=== PATIENT | male | born 1965 | race Caucasian/White ===

== ENCOUNTER 2017-04-22 10:44 | Inpatient (IN) | payer SELFPAY ==
[2017-04-22] MEDS ORDERED: Ondansetron INJ* 2 MG/ML VIAL IV ONE (12:37)
[2017-04-22] MEDS ORDERED: NS 0.9% 1000 ML* 2,000 ML IV ONE ×2 (12:55→15:21)
--- NOTE | 2017-04-22 13:25 | RAD ---
INDICATION: Weight loss and tachypnea. COMPARISON: There are no prior studies available for comparison. TECHNIQUE: A portable view of the chest was obtained. FINDINGS: Cardiac and mediastinal contours appear to be within normal limits. The lungs are clear. No pleural effusion is seen. IMPRESSION: NO EVIDENCE FOR ACUTE DISEASE.
[2017-04-22 13:34] LABS: Hematocrit 54 % (42-52); Hemoglobin 18.3 g/dl (14.0-18.0); Mean Corpuscular HGB Conc 34 g/dl (31-36); Mean Corpuscular Hemoglobin 30 pg (27-31); Mean Corpuscular Volume 89 fL (80-94); Mean Platelet Volume 9 um3 (7.4-10.4); Red Blood Count 6.06 10^6/ul (4.0-5.4); Red Cell Distribution Width 14 % (10.5-15); White Blood Count 31.9 10^3/ul (3.5-10.8)
[2017-04-22 13:41] LABS: Add Diff/Slide Review? Slide Review Added; Comments Flag Yes
[2017-04-22 13:50] LABS: Albumin 4.7 g/dL (3.2-5.2); BUN/Creatinine Ratio 31.8 (8-20); C Reactive Protein 4.62 mg/L (< 5.00); Calcium 10.4 mg/dL (8.6-10.3); EGFR African American 90.1 (>60); Globulin 3.6 g/dL (2-4); Potassium 4.3 mmol/L (3.5-5.0); Total Protein 8.3 g/dL (6.4-8.9)
[2017-04-22 14:06] LABS: Mono Internal Control QC Line Present
[2017-04-22 14:29] LABS: Venous Bicarbonate HCO3 12.6 mmol/L (24-28)
[2017-04-22 14:38] LABS: Urine Bilirubin Negative (Negative); Urine Glucose 3+(>=500 mg/dL) (Negative); Urine Nitrite Negative (Negative)
[2017-04-22] MEDS ORDERED: Insulin REGULAR(*) 1 UNITS UNIT IV PUSH ONE (15:27)
[2017-04-22] MEDS ORDERED: NS 0.9% 1000 ML* 1,000 ML IV SCH (15:30)
[2017-04-22] MEDS ORDERED: NS 0.9% w/ 20 Meq KCL 1000 ML* 1,000 ML IV SCH (16:00)
[2017-04-22 16:55] LABS: BUN/Creatinine Ratio 31.3 (8-20); EGFR African American 124.6 (>60); EGFR Non-African American 96.9 (>60); Potassium 3.6 mmol/L (3.5-5.0)
--- NOTE | 2017-04-22 17:00 | HP ---
HISTORY AND PHYSICAL: DATE OF ADMISSION: 04/22/17 PRIMARY CARE PHYSICIAN: None. CHIEF COMPLAINT: Fatigue, nausea, dehydration. HISTORY OF PRESENT ILLNESS: Mr. Sterling is a 52-year-old man with no reported past medical history and little medical followup, who presents to the hospital with weakness, dehydration, and nausea. The patient states he has been feeling unwell for the past few months. Feels that he has lost about 20 pounds in the past 6 months; however, specifically over the last 4 to 5 days, he has felt progressively weak and fatigued. He noticed he has been sleeping frequently. He has had a poor appetite and has been urinating often. He has tried to keep up with water intake, but has not been eating much food. He states he has had some nausea, has not vomited on his own, but has forced emesis a few times, which he states improved his symptoms. Reports intermittent sweats never to the point where he needs to change his clothes. Never taken his temperature. Denies chest pain, abdominal pain, diarrhea, constipation, dysuria, hematuria, bright red blood per rectum. States his breathing is erratic at times, specifically around the times that he forces himself to vomit. The patient is homosexual. States his last sexual encounter was 25 years ago and he has always used protection. He has not had an HIV test recently. In the emergency department, the patient was found to have labs and findings consistent with DKA and hospitalist service was consulted to consider the patient for admission. PAST MEDICAL HISTORY: None. Again, little medical followup. PAST SURGICAL HISTORY: None. HOME MEDICATIONS: Reports taking ibuprofen infrequently. ALLERGIES: No known drug allergies. FAMILY HISTORY: Significant for mother with hypertension. Father in a car accident. Brother was diagnosed with diabetes about 1 year ago. 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 Reports half a pack per day smoking history x25 years. Denies any alcohol intake. Smokes marijuana occasionally. No other drug use. REVIEW OF SYSTEMS: A 12-point review of systems negative except for that is noted in the HPI. PHYSICAL EXAMINATION GENERAL: The patient is a thin middle-aged man, lying in bed, in no apparent distress. VITAL SIGNS: On admission, temperature 98.2, heart rate of 131, respiratory rate of 20, O2 saturation 99% on room air, and blood pressure 128/98. HEENT: Head: Normocephalic, atraumatic. Eyes: Pupils are equal, round, and reactive to light and accommodation. Anicteric sclerae. ENT: Dry mucous membranes. The patient's breath has a fruity odor. NECK: No cervical adenopathy. LUNGS: Clear to auscultation bilaterally. No wheezes, rales, or rhonchi. CARDIOVASCULAR: Tachycardia. No murmurs, gallops, or rubs. ABDOMEN: Soft, nontender, nondistended. Bowel sounds positive. EXTREMITIES: No cyanosis, clubbing, or edema. NEURO: The patient is alert and oriented x3. No focal neurological deficits. DIAGNOSTIC STUDIES/LAB DATA: White blood cell count of 31.9, hemoglobin of 18.3, hematocrit of 54, and platelets of 312. VBG with a pH of 7.21, pCO2 of 29 , pO2 of 37, bicarb of 12.6. Sodium 123, potassium 4.3, chloride of 87, carbon dioxide of 11, BUN of 35, creatinine of 1.10, glucose of 540, calcium of 10.4. AST of 6, ALT of 10, alk phos of 125. CRP of 4.62. UA with 2+ ketones, 3+ glucose. Flu swab negative. Hendricks screen negative. HIV test pending. EKG, personally reviewed, shows sinus tachycardia with some repolarization abnormalities. Chest x-ray shows no acute disease. ASSESSMENT AND PLAN: Diabetic ketoacidosis in a 52-year-old man with no past medical history and little medical followup. 1. Diabetic ketoacidosis. The patient received 2 L of IV fluids in the emergency department. We will give another 2 L bolus and continue the patient on normal saline with 20 mEq of potassium at a rate of 250 mL per hour. We will give an initial bolus of 7 units of insulin and start an insulin drip. The patient's corrected sodium is 130 at this time. We will monitor the patient 's fingersticks every hour and BMP every 4 hours. Can make adjustments to insulin rate and IV fluids as needed until the patient's acidosis resolves. Have added on a hemoglobin A1c and ordered a diabetes education consult. Okay for the patient to drink just water for now. I do not suspect any underlying infection. I think his symptoms are all secondary to DKA and his white blood cell count is likely significantly hemoconcentrated. 2. Weight loss. Could be secondary to untreated diabetes. HIV test is pending at this time as well. ED has also ordered Lyme disease, PCR, and QuantiFERON Gold. 3. DVT prophylaxis: Lovenox subcu. 4. Code status: The patient is full code. TIME SPENT: Total time spent on this admission 45 minutes with over half the time spent [id number] with the patient in counseling and coordinating care. [id number]/[facility] #: [id number] MERRY
[2017-04-22] MEDS: Enoxaparin(*) 40 MG/0.4 ML SYR SUBCUT SCH (18:04)
[2017-04-22] MEDS: Al Hydrox/Mg Hydrox/Simet LIQ* 30 ML UDC PO PRN (18:46)
[2017-04-22 19:44] LABS: BUN/Creatinine Ratio 30.4 (8-20); EGFR African American 154.3 (>60); EGFR Non-African American 119.9 (>60); Potassium 4.2 mmol/L (3.5-5.0)
[2017-04-22] MEDS: D5W 1/2 NS KCl 20 Meq 1000 ML* 1,000 ML IV SCH (20:08)
--- NOTE | 2017-04-22 20:54 | ED ---
Danitza Perez Abhishek, scribed for Aristides Segal MD on 04/22/17 at 1241 . Abdominal Pain/Male - HPI Summary HPI Summary: This patient is a 52 year old M presenting to [facility] accompanied by male and mother with a chief complaint of abd pain since 3 days ago. The CC is described as uneasy at the medial abd region. The patient rates the pain 6/10 in severity. Symptoms aggravated by nothing. Symptoms alleviated by vomiting. Patient reports N/V, fever (subjective), body aches, decrease in appetite, dry mouth, and weight loss since this summer. Patient denies flu shot, joint aches, tick bites, cough, rhinorrhea, diarrhea, hematochezia. 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 Negative: Cough, Blood in Stool - Allergies/Home Medications Allergies/Adverse Reactions: Allergies Allergy/AdvReac Type Severity Reaction Status Date / Time No Known Allergies Allergy Verified 04/22/17 10:54 PMH/Surg Hx/FS Hx/Imm Hx Infectious Disease History: No Infectious Disease History: Denies: Traveled Outside the [place] in Last 30 Days - Family History Known Family History: Positive: Diabetes - Brother, Other - Negative cancer - Social History Occupation: Employed Full-time - r Alcohol Use: Occasionally Smoking Status (MU): Current Some Day Smoker Review of Systems Positive: Fever, Other - weight loss since this summer Eyes: Negative Positive: Other - dry mouth. Negative: Nasal Discharge Positive: Other - tachycardic Negative: Cough Positive: Abdominal Pain, Vomiting, Nausea, Other - decreased appetite Positive: frequency - urination Positive: Other - body aches Negative: Rash Positive: Weakness Psychological: Normal All Other Systems Reviewed And Are Negative: Yes - Comments Additional Review of Systems Comments: Negative joint aches, tick bites, and hematochezia, Physical Exam - Summary Physical Exam Summary: Constitutional: cachectic appearing, Skin: Warm, Dry HENT: Normocephalic; Atraumatic; dry mucous membranes Eyes: Conjunctiva normal Neck: Musculoskeletal ROM normal neck. (-) JVD, (-) Stridor, (-) Tracheal deviation Cardio: Rhythm regular, Tachycardia ; Intact distal pulses; The pedal pulses are 2+ and symmetric. Radial pulses are 2+ and symmetric. (-) Murmur Pulmonary/Chest wall: Effort normal. (-) Respiratory distress, (-) Wheezes, (-) Rales Abd: Soft, (-) Tenderness, (-) Distension, (-) Guarding, (-) Rebound Musculoskeletal: (-) Edema Lymph: (-) Cervical adenopathy Neuro: Alert, Oriented x3 Psych: Mood and affect Normal Triage Information Reviewed: Yes Vital Signs On Initial Exam: Initial Vitals Temp Pulse Resp BP Pulse Ox 98.2 F 131 20 128/98 99 04/22/17 10:51 04/22/17 10:51 04/22/17 10:51 04/22/17 10:51 04/22/17 10:51 Vital Signs Reviewed: Yes Diagnostics - Vital Signs Vital Signs Temp Pulse Resp BP Pulse Ox 04/22/17 10:51 98.2 F 131 20 128/98 99 - Laboratory Lab Results: Lab Results 04/22/17 04/22/17 04/22/17 Range/Units 13:22 13:22 13:22 WBC 31.9 H (3.5-10.8) 10^3/ul RBC 6.06 H (4.0-5.4) 10^6/ul Hgb 18.3 H (14.0-18.0) g/dl Hct 54 H (42-52) % MCV 89 (80-94) fL MCH 30 (27-31) pg MCHC 34 (31-36) g/dl RDW 14 (10.5-15) % Plt Count 312 (150-450) 10^3/ul MPV 9 (7.4-10.4) um3 Neut % (Auto) 89.3 H (38-83) % Lymph % (Auto) 5.5 L (25-47) % [place] % (Auto) 4.7 (1-9) % Eos % (Auto) 0 (0-6) % Baso % (Auto) 0.5 (0-2) % Absolute Neuts (auto) 28.4 H (1.5-7.7) 10^3/ul Absolute Lymphs (auto) 1.8 (1.0-4.8) 10^3/ul Absolute Monos (auto) 1.5 H (0-0.8) 10^3/ul Absolute Eos (auto) 0 (0-0.6) 10^3/ul Absolute Basos (auto) 0.2 (0-0.2) 10^3/ul Absolute Nucleated RBC 0.04 10^3/ul Nucleated RBC % 0.1 VBG pH (7.33-7.43) VBG pCO2 (41-51) mmHg VBG pO2 (35-45) mmHg VBG HCO3 (24-28) mmol/L VBG O2 Saturation (70-80) % VBG Base Excess (0-4) Sodium 123 L (133-145) mmol/L Potassium 4.3 (3.5-5.0) mmol/L Chloride 87 L (101-111) mmol/L Carbon Dioxide 11 L* (22-32) mmol/L Anion Gap 25 H (2-11) mmol/L BUN 35 H (6-24) mg/dL Creatinine 1.10 (0.67-1.17) mg/dL Est GFR ( Amer) 90.1 (>60) Est GFR (Non-Af Amer) 70.0 (>60) BUN/Creatinine Ratio 31.8 H (8-20) Glucose 540 H* (70-100) mg/dL Hemoglobin A1c (4.0-5.6) % Lactic Acid 1.6 (0.5-2.0) mmol/L Calcium 10.4 H (8.6-10.3) mg/dL Total Bilirubin 1.00 (0.2-1.0) mg/dL AST 6 L (13-39) U/L ALT 10 (7-52) U/L Alkaline Phosphatase 125 H (34-104) U/L C-Reactive Protein 4.62 (< 5.00) mg/L Total Protein 8.3 (6.4-8.9) g/dL Albumin 4.7 (3.2-5.2) g/dL Globulin 3.6 (2-4) g/dL Albumin/Globulin Ratio 1.3 (1-3) Lipase 17 (11.0-82.0) U/L Urine Color Urine Appearance Urine pH (5-9) Ur Specific [place] (1.010-1.030) Urine Protein (Negative) Urine Ketones (Negative) Urine Blood (Negative) Urine Nitrate (Negative) Urine Bilirubin (Negative) Urine Urobilinogen (Negative) Ur Leukocyte Esterase (Negative) Urine Glucose (Negative) Monoscreen Negative (Negative) Influenza A (Rapid) (Negative) Influenza B (Rapid) (Negative) 04/22/17 04/22/17 04/22/17 Range/Units 13:22 13:27 14:15 WBC (3.5-10.8) 10^3/ul RBC (4.0-5.4) 10^6/ul Hgb (14.0-18.0) g/dl Hct (42-52) % MCV (80-94) fL MCH (27-31) pg MCHC (31-36) g/dl RDW (10.5-15) % Plt Count (150-450) 10^3/ul MPV (7.4-10.4) um3 Neut % (Auto) (38-83) % Lymph % (Auto) (25-47) % [place] % (Auto) (1-9) % Eos % (Auto) (0-6) % Baso % (Auto) (0-2) % Absolute Neuts (auto) (1.5-7.7) 10^3/ul Absolute Lymphs (auto) (1.0-4.8) 10^3/ul Absolute Monos (auto) (0-0.8) 10^3/ul Absolute Eos (auto) (0-0.6) 10^3/ul Absolute Basos (auto) (0-0.2) 10^3/ul Absolute Nucleated RBC 10^3/ul Nucleated RBC % VBG pH (7.33-7.43) VBG pCO2 (41-51) mmHg VBG pO2 (35-45) mmHg VBG HCO3 (24-28) mmol/L VBG O2 Saturation (70-80) % VBG Base Excess (0-4) Sodium (133-145) mmol/L Potassium (3.5-5.0) mmol/L Chloride (101-111) mmol/L Carbon Dioxide (22-32) mmol/L Anion Gap (2-11) mmol/L BUN (6-24) mg/dL Creatinine (0.67-1.17) mg/dL Est GFR ( Amer) (>60) Est GFR (Non-Af Amer) (>60) BUN/Creatinine Ratio (8-20) Glucose (70-100) mg/dL Hemoglobin A1c 14.4 H (4.0-5.6) % Lactic Acid (0.5-2.0) mmol/L Calcium (8.6-10.3) mg/dL Total Bilirubin (0.2-1.0) mg/dL AST (13-39) U/L ALT (7-52) U/L Alkaline Phosphatase (34-104) U/L C-Reactive Protein (< 5.00) mg/L Total Protein (6.4-8.9) g/dL Albumin (3.2-5.2) g/dL Globulin (2-4) g/dL Albumin/Globulin Ratio (1-3) Lipase (11.0-82.0) U/L Urine Color Straw Urine Appearance Clear Urine pH 5.0 (5-9) Ur Specific [place] 1.025 (1.010-1.030) Urine Protein Negative (Negative) Urine Ketones 2+ H (Negative) Urine Blood Negative (Negative) Urine Nitrate Negative (Negative) Urine Bilirubin Negative (Negative) Urine Urobilinogen Negative (Negative) Ur Leukocyte Esterase Negative (Negative) Urine Glucose 3+(>=500 mg/dl) H (Negative) Monoscreen (Negative) Influenza A (Rapid) Negative (Negative) Influenza B (Rapid) Negative (Negative) 04/22/17 Range/Units 14:15 WBC (3.5-10.8) 10^3/ul RBC (4.0-5.4) 10^6/ul Hgb (14.0-18.0) g/dl Hct (42-52) % MCV (80-94) fL MCH (27-31) pg MCHC (31-36) g/dl RDW (10.5-15) % Plt Count (150-450) 10^3/ul MPV (7.4-10.4) um3 Neut % (Auto) (38-83) % Lymph % (Auto) (25-47) % [place] % (Auto) (1-9) % Eos % (Auto) (0-6) % Baso % (Auto) (0-2) % Absolute Neuts (auto) (1.5-7.7) 10^3/ul Absolute Lymphs (auto) (1.0-4.8) 10^3/ul Absolute Monos (auto) (0-0.8) 10^3/ul Absolute Eos (auto) (0-0.6) 10^3/ul Absolute Basos (auto) (0-0.2) 10^3/ul Absolute Nucleated RBC 10^3/ul Nucleated RBC % VBG pH 7.21 L (7.33-7.43) VBG pCO2 29 L (41-51) mmHg VBG pO2 37 (35-45) mmHg VBG HCO3 12.6 L (24-28) mmol/L VBG O2 Saturation 72.8 (70-80) % VBG Base Excess -14.7 L (0-4) Sodium (133-145) mmol/L Potassium (3.5-5.0) mmol/L Chloride (101-111) mmol/L Carbon Dioxide (22-32) mmol/L Anion Gap (2-11) mmol/L BUN (6-24) mg/dL Creatinine (0.67-1.17) mg/dL Est GFR ( Amer) (>60) Est GFR (Non-Af Amer) (>60) BUN/Creatinine Ratio (8-20) Glucose (70-100) mg/dL Hemoglobin A1c (4.0-5.6) % Lactic Acid (0.5-2.0) mmol/L Calcium (8.6-10.3) mg/dL Total Bilirubin (0.2-1.0) mg/dL AST (13-39) U/L ALT (7-52) U/L Alkaline Phosphatase (34-104) U/L C-Reactive Protein (< 5.00) mg/L Total Protein (6.4-8.9) g/dL Albumin (3.2-5.2) g/dL Globulin (2-4) g/dL Albumin/Globulin Ratio (1-3) Lipase (11.0-82.0) U/L Urine Color Urine Appearance Urine pH (5-9) Ur Specific [place] (1.010-1.030) Urine Protein (Negative) Urine Ketones (Negative) Urine Blood (Negative) Urine Nitrate (Negative) Urine Bilirubin (Negative) Urine Urobilinogen (Negative) Ur Leukocyte Esterase (Negative) Urine Glucose (Negative) Monoscreen (Negative) Influenza A (Rapid) (Negative) Influenza B (Rapid) (Negative) Result Diagrams: 04/22/17 13:22 04/22/17 19:21 Lab Statement: Any lab studies that have been ordered have been reviewed, and results considered in the medical decision making process. - Radiology Chest X-ray Xray Interpretation: No Acute Changes Radiology Interpretation Completed By: Radiologist - EKG 1430 Cardiac Rate: Tachycardia - 109 bpm EKG Rhythm: Sinus Tachycardia EKG Interpretation: no ST elevation Re-Evaluation - Re-Evaluation 1435 Re-Evaluation Time: 14:35 - Updated pt with dx Change: Unchanged Abdominal Pain Fem Course/Dx - Course Course Of Treatment: A 52-year-old M presents to the ED with a CC of abd pain since 3 days ago Patient reports N/V, fever (subjective), body aches, weakness, and decrease in appetite, dry mouth, frequent urination and weight loss since this summer. Patient denies flu shot, joint aches, tick bites, cough, rhinorrhea , diarrhea, hematochezia, and rashes. CXR reveals NO EVIDENCE FOR ACUTE DISEASE. EKG reveals 109 bpm, sinus tachycardia, no ST elevation at 1430. Ed physician provided interpretation of EKG report. ED physician has reviewed this radiology report and agrees. Dx of Diabetic ketoacidosis and low WBC due to dehydration and hemoconcentration. We discussed patient care with Dr. Verde for admittance. Patient will be admitted. Pt is agreeable with this plan. - Diagnoses Differential Diagnosis/HQI/PQRI: Other - diabetic ketoacidosis Low WB due to dehydration and hemoconcentration Provider Diagnoses: DKA (diabetic ketoacidoses) - Provider Notifications Admit/Transition Orders Completed By ED Provider: Yes - Critical Care Time Critical Care Time: 30-74 min - 60 minutes Discharge - Discharge Plan Condition: Fair Disposition: ADMITTED TO [facility] documentation as recorded by the scribe, Danitza,Patrick accurately reflects the service I personally performed and the decisions made by me, Aristides Segal MD.
[2017-04-23] LABS: BUN/Creatinine Ratio 24.2 (8-20); EGFR African American 174.5 (>60); EGFR Non-African American 135.7 (>60)
[2017-04-23] MEDS: D5W 1/2 NS KCl 20 Meq 1000 ML* 1,000 ML IV SCH ×3 (00:10→08:13)
[2017-04-23 04:22] LABS: Hematocrit 39 % (42-52); Hemoglobin 13.5 g/dl (14.0-18.0); Mean Corpuscular HGB Conc 35 g/dl (31-36); Mean Corpuscular Hemoglobin 30 pg (27-31); Mean Corpuscular Volume 87 fL (80-94); Mean Platelet Volume 8 um3 (7.4-10.4); Red Blood Count 4.51 10^6/ul (4.0-5.4); Red Cell Distribution Width 14 % (10.5-15)
[2017-04-23 04:23] LABS: Comments Flag Yes
[2017-04-23 04:49] LABS: BUN/Creatinine Ratio 22.4 (8-20); Calcium 7.9 mg/dL (8.6-10.3); Potassium 3.5 mmol/L (3.5-5.0)
[2017-04-23] MEDS: Al Hydrox/Mg Hydrox/Simet LIQ* 30 ML UDC PO PRN (07:34)
[2017-04-23 08:02] LABS: Blood Urea Nitrogen 8 mg/dL (6-24); CO2 Carbon Dioxide 19 mmol/L (22-32); Calcium 7.6 mg/dL (8.6-10.3); Chloride 105 mmol/L (101-111); EGFR African American 273.5 (>60); EGFR Non-African American 212.7 (>60); Glucose 180 mg/dL (70-100); Sodium 128 mmol/L (133-145)
[2017-04-23 08:19] LABS: Anion Gap 4 mmol/L (2-11)
[2017-04-23] MEDS ORDERED: D5W 1/2 NS KCl 20 Meq 1000 ML* 1,000 ML IV SCH (08:25)
[2017-04-23] MEDS ORDERED: Dextrose 50% Syringe 50 ML* 25 GM/50 ML SYRINGE IV PUSH PRN (08:36)
--- NOTE | 2017-04-23 08:55 | PN ---
Subjective Date of Service: 04/23/17 Interval History: No nausea. No c/o. Objective Active Medications: Al Hydrox/Mg Hydrox/Simethicone (Maalox Plus*) 30 ml PO Q4H PRN PRN Reason: . Last Admin: 04/23/17 07:34 Dose: 30 ml Dextrose (D50w Syringe 50 Ml*) 12.5 gm IV PUSH .FOR FS < 60 - SS PRN PRN Reason: FS < 60 Enoxaparin Sodium (Lovenox(*)) 40 mg SUBCUT Q24H [facility] Last Admin: 04/22/17 18:04 Dose: 40 mg Insulin Human Regular 100 (units/ Sodium Chloride) 100 mls @ 5.22 mls/hr IV Q19H CHLOE; 0.1 UNITS/KG/HR PRN Reason: Protocol Last Admin: 04/22/17 20:10 Dose: Not Given Potassium Chloride/Dextrose (D5w 1/2 Ns Kcl 20 Meq 1000 Ml*) 1,000 mls @ 75 mls /hr IV PER RATE [facility] Insulin Glargine (Lantus(*)) 20 units SUBCUT Q24H [facility] Insulin Human Lispro (Humalog*) 4 units SUBCUT AC [facility] Vital Signs 04/22/17 04/22/17 04/22/17 15:30 16:00 16:30 Temperature Pulse Rate 100 102 Respiratory 16 15 Rate Blood Pressure 160/87 138/83 141/82 (mmHg) O2 Sat by Pulse 98 99 Oximetry 04/22/17 04/22/17 04/22/17 17:00 17:30 17:50 Temperature Pulse Rate 110 103 105 Respiratory 17 17 Rate Blood Pressure 140/93 132/83 132/88 (mmHg) O2 Sat by Pulse 98 97 98 Oximetry 04/22/17 04/22/17 04/22/17 17:52 17:59 18:00 Temperature 99.5 F 99.5 F Pulse Rate 106 104 104 Respiratory 15 17 15 Rate Blood Pressure 132/88 (mmHg) O2 Sat by Pulse 98 98 98 Oximetry 04/22/17 04/22/17 04/22/17 18:15 18:30 18:45 Temperature Pulse Rate 104 96 97 Respiratory 15 16 17 Rate Blood Pressure 123/87 148/84 145/87 (mmHg) O2 Sat by Pulse 99 99 100 Oximetry 04/22/17 04/22/17 04/22/17 19:00 19:15 19:17 Temperature Pulse Rate 93 90 92 Respiratory 16 17 20 Rate Blood Pressure 144/89 145/91 (mmHg) O2 Sat by Pulse 99 100 99 Oximetry 04/22/17 04/22/17 04/22/17 19:30 19:39 19:45 Temperature 98.9 F Pulse Rate 92 94 Respiratory 17 16 Rate Blood Pressure 142/81 130/82 (mmHg) O2 Sat by Pulse 99 98 Oximetry 04/22/17 04/22/17 04/22/17 20:00 20:15 20:20 Temperature Pulse Rate 87 99 98 Respiratory 17 14 19 Rate Blood Pressure 143/80 127/85 (mmHg) O2 Sat by Pulse 99 99 98 Oximetry 04/22/17 04/22/17 04/22/17 20:30 20:45 21:00 Temperature Pulse Rate 93 102 94 Respiratory 18 18 16 Rate Blood Pressure 145/84 135/82 137/83 (mmHg) O2 Sat by Pulse 98 98 99 Oximetry 04/22/17 04/22/17 04/22/17 21:15 21:30 21:45 Temperature Pulse Rate 91 92 88 Respiratory 21 19 20 Rate Blood Pressure 140/78 138/79 132/82 (mmHg) O2 Sat by Pulse 98 98 98 Oximetry 04/22/17 04/22/17 04/22/17 22:00 22:15 22:30 Temperature Pulse Rate 87 89 92 Respiratory 17 18 16 Rate Blood Pressure 139/83 139/82 133/82 (mmHg) O2 Sat by Pulse 98 98 98 Oximetry 04/22/17 04/22/17 04/22/17 22:45 23:00 23:15 Temperature Pulse Rate 85 82 80 Respiratory 18 15 25 Rate Blood Pressure 141/80 126/76 131/79 (mmHg) O2 Sat by Pulse 98 98 98 Oximetry 04/22/17 04/22/17 04/22/17 23:30 23:31 23:33 Temperature 100.3 F Pulse Rate 81 80 Respiratory 17 17 Rate Blood Pressure 140/80 (mmHg) O2 Sat by Pulse 98 98 Oximetry 04/22/17 04/23/17 04/23/17 23:45 00:00 00:15 Temperature Pulse Rate 78 76 93 Respiratory 15 14 18 Rate Blood Pressure 138/81 132/77 140/78 (mmHg) O2 Sat by Pulse 99 99 99 Oximetry 04/23/17 04/23/17 04/23/17:17 01:00 01:30 Temperature Pulse Rate 84 77 Respiratory 14 14 18 Rate Blood Pressure 138/76 (mmHg) O2 Sat by Pulse 99 99 Oximetry 04/23/17 04/23/17 04/23/17 02:00 02:30 02:41 Temperature Pulse Rate 75 79 Respiratory 15 18 14 Rate Blood Pressure 137/80 (mmHg) O2 Sat by Pulse 99 99 Oximetry 04/23/17 04/23/17 04/23/17 03:00 03:45 04:00 Temperature 99.6 F Pulse Rate 77 83 Respiratory 16 16 20 Rate Blood Pressure 130/73 141/78 (mmHg) O2 Sat by Pulse 99 99 Oximetry 04/23/17 04/23/17 04/23/17 05:00 06:00 07:00 Temperature Pulse Rate 74 76 68 Respiratory 19 15 17 Rate Blood Pressure 131/83 124/75 129/78 (mmHg) O2 Sat by Pulse 98 98 98 Oximetry 04/23/17 04/23/17 04/23/17 07:44 07:57 08:00 Temperature 98.7 F Pulse Rate 76 Respiratory 20 10 Rate Blood Pressure 131/81 (mmHg) O2 Sat by Pulse 98 Oximetry Oxygen Devices in Use Now: None Appearance: Alert, partly up in ICU bed. In good spirits. Looks comfortable. Eyes: No Scleral Icterus Neck: NL Appearance and Movements; NL JVP, No Thyroid Enlargement, Masses Respiratory: Symmetrical Chest Expansion and Respiratory Effort, Clear to Percussion Cardiovascular: NL Sounds; No Murmurs; No JVD, RRR, No Edema, - Extremities: No Edema, No Clubbing, Cyanosis, - Skin: No Rash or Ulcers, No Nodules or Sclerosis, - Neurological: Alert and Oriented x 3, NL Sensation Result Diagrams: 04/23/17 04:05 04/23/17 07:37 Additional Lab and Data: Lab Results 04/22/17 04/22/17 04/22/17 Range/Units 13:22 13:22 13:22 WBC 31.9 H (3.5-10.8) 10^3/ul RBC 6.06 H (4.0-5.4) 10^6/ul Hgb 18.3 H (14.0-18.0) g/dl Hct 54 H (42-52) % MCV 89 (80-94) fL MCH 30 (27-31) pg MCHC 34 (31-36) g/dl RDW 14 (10.5-15) % Plt Count 312 (150-450) 10^3/ul MPV 9 (7.4-10.4) um3 Neut % (Auto) 89.3 H (38-83) % Lymph % (Auto) 5.5 L (25-47) % [place] % (Auto) 4.7 (1-9) % Eos % (Auto) 0 (0-6) % Baso % (Auto) 0.5 (0-2) % Absolute Neuts (auto) 28.4 H (1.5-7.7) 10^3/ul Absolute Lymphs (auto) 1.8 (1.0-4.8) 10^3/ul Absolute Monos (auto) 1.5 H (0-0.8) 10^3/ul Absolute Eos (auto) 0 (0-0.6) 10^3/ul Absolute Basos (auto) 0.2 (0-0.2) 10^3/ul Absolute Nucleated RBC 0.04 10^3/ul Nucleated RBC % 0.1 VBG pH (7.33-7.43) VBG pCO2 (41-51) mmHg VBG pO2 (35-45) mmHg VBG HCO3 (24-28) mmol/L VBG O2 Saturation (70-80) % VBG Base Excess (0-4) Sodium 123 L (133-145) mmol/L Potassium 4.3 (3.5-5.0) mmol/L Chloride 87 L (101-111) mmol/L Carbon Dioxide 11 L* (22-32) mmol/L Anion Gap 25 H (2-11) mmol/L BUN 35 H (6-24) mg/dL Creatinine 1.10 (0.67-1.17) mg/dL Est GFR ( Amer) 90.1 (>60) Est GFR (Non-Af Amer) 70.0 (>60) BUN/Creatinine Ratio 31.8 H (8-20) Glucose 540 H* (70-100) mg/dL Hemoglobin A1c (4.0-5.6) % Lactic Acid 1.6 (0.5-2.0) mmol/L Calcium 10.4 H (8.6-10.3) mg/dL Total Bilirubin 1.00 (0.2-1.0) mg/dL AST 6 L (13-39) U/L ALT 10 (7-52) U/L Alkaline Phosphatase 125 H (34-104) U/L C-Reactive Protein 4.62 (< 5.00) mg/L Total Protein 8.3 (6.4-8.9) g/dL Albumin 4.7 (3.2-5.2) g/dL Globulin 3.6 (2-4) g/dL Albumin/Globulin Ratio 1.3 (1-3) Lipase 17 (11.0-82.0) U/L Urine Color Urine Appearance Urine pH (5-9) Ur Specific [place] (1.010-1.030) Urine Protein (Negative) Urine Ketones (Negative) Urine Blood (Negative) Urine Nitrate (Negative) Urine Bilirubin (Negative) Urine Urobilinogen (Negative) Ur Leukocyte Esterase (Negative) Urine Glucose (Negative) Monoscreen Negative (Negative) Influenza A (Rapid) (Negative) Influenza B (Rapid) (Negative) 04/22/17 04/22/17 04/22/17 Range/Units 13:22 13:27 14:15 WBC (3.5-10.8) 10^3/ul RBC (4.0-5.4) 10^6/ul Hgb (14.0-18.0) g/dl Hct (42-52) % MCV (80-94) fL MCH (27-31) pg MCHC (31-36) g/dl RDW (10.5-15) % Plt Count (150-450) 10^3/ul MPV (7.4-10.4) um3 Neut % (Auto) (38-83) % Lymph % (Auto) (25-47) % [place] % (Auto) (1-9) % Eos % (Auto) (0-6) % Baso % (Auto) (0-2) % Absolute Neuts (auto) (1.5-7.7) 10^3/ul Absolute Lymphs (auto) (1.0-4.8) 10^3/ul Absolute Monos (auto) (0-0.8) 10^3/ul Absolute Eos (auto) (0-0.6) 10^3/ul Absolute Basos (auto) (0-0.2) 10^3/ul Absolute Nucleated RBC 10^3/ul Nucleated RBC % VBG pH (7.33-7.43) VBG pCO2 (41-51) mmHg VBG pO2 (35-45) mmHg VBG HCO3 (24-28) mmol/L VBG O2 Saturation (70-80) % VBG Base Excess (0-4) Sodium (133-145) mmol/L Potassium (3.5-5.0) mmol/L Chloride (101-111) mmol/L Carbon Dioxide (22-32) mmol/L Anion Gap (2-11) mmol/L BUN (6-24) mg/dL Creatinine (0.67-1.17) mg/dL Est GFR ( Amer) (>60) Est GFR (Non-Af Amer) (>60) BUN/Creatinine Ratio (8-20) Glucose (70-100) mg/dL Hemoglobin A1c 14.4 H (4.0-5.6) % Lactic Acid (0.5-2.0) mmol/L Calcium (8.6-10.3) mg/dL Total Bilirubin (0.2-1.0) mg/dL AST (13-39) U/L ALT (7-52) U/L Alkaline Phosphatase (34-104) U/L C-Reactive Protein (< 5.00) mg/L Total Protein (6.4-8.9) g/dL Albumin (3.2-5.2) g/dL Globulin (2-4) g/dL Albumin/Globulin Ratio (1-3) Lipase (11.0-82.0) U/L Urine Color Straw Urine Appearance Clear Urine pH 5.0 (5-9) Ur Specific [place] 1.025 (1.010-1.030) Urine Protein Negative (Negative) Urine Ketones 2+ H (Negative) Urine Blood Negative (Negative) Urine Nitrate Negative (Negative) Urine Bilirubin Negative (Negative) Urine Urobilinogen Negative (Negative) Ur Leukocyte Esterase Negative (Negative) Urine Glucose 3+(>=500 mg/dl) H (Negative) Monoscreen (Negative) Influenza A (Rapid) Negative (Negative) Influenza B (Rapid) Negative (Negative) 04/22/17 Range/Units 14:15 WBC (3.5-10.8) 10^3/ul RBC (4.0-5.4) 10^6/ul Hgb (14.0-18.0) g/dl Hct (42-52) % MCV (80-94) fL MCH (27-31) pg MCHC (31-36) g/dl RDW (10.5-15) % Plt Count (150-450) 10^3/ul MPV (7.4-10.4) um3 Neut % (Auto) (38-83) % Lymph % (Auto) (25-47) % [place] % (Auto) (1-9) % Eos % (Auto) (0-6) % Baso % (Auto) (0-2) % Absolute Neuts (auto) (1.5-7.7) 10^3/ul Absolute Lymphs (auto) (1.0-4.8) 10^3/ul Absolute Monos (auto) (0-0.8) 10^3/ul Absolute Eos (auto) (0-0.6) 10^3/ul Absolute Basos (auto) (0-0.2) 10^3/ul Absolute Nucleated RBC 10^3/ul Nucleated RBC % VBG pH 7.21 L (7.33-7.43) VBG pCO2 29 L (41-51) mmHg VBG pO2 37 (35-45) mmHg VBG HCO3 12.6 L (24-28) mmol/L VBG O2 Saturation 72.8 (70-80) % VBG Base Excess -14.7 L (0-4) Sodium (133-145) mmol/L Potassium (3.5-5.0) mmol/L Chloride (101-111) mmol/L Carbon Dioxide (22-32) mmol/L Anion Gap (2-11) mmol/L BUN (6-24) mg/dL Creatinine (0.67-1.17) mg/dL Est GFR ( Amer) (>60) Est GFR (Non-Af Amer) (>60) BUN/Creatinine Ratio (8-20) Glucose (70-100) mg/dL Hemoglobin A1c (4.0-5.6) % Lactic Acid (0.5-2.0) mmol/L Calcium (8.6-10.3) mg/dL Total Bilirubin (0.2-1.0) mg/dL AST (13-39) U/L ALT (7-52) U/L Alkaline Phosphatase (34-104) U/L C-Reactive Protein (< 5.00) mg/L Total Protein (6.4-8.9) g/dL Albumin (3.2-5.2) g/dL Globulin (2-4) g/dL Albumin/Globulin Ratio (1-3) Lipase (11.0-82.0) U/L Urine Color Urine Appearance Urine pH (5-9) Ur Specific [place] (1.010-1.030) Urine Protein (Negative) Urine Ketones (Negative) Urine Blood (Negative) Urine Nitrate (Negative) Urine Bilirubin (Negative) Urine Urobilinogen (Negative) Ur Leukocyte Esterase (Negative) Urine Glucose (Negative) Monoscreen (Negative) Influenza A (Rapid) (Negative) Influenza B (Rapid) (Negative) Microbiology and Other Data: Microbiology 04/22/17 17:29 Nasal Screen MRSA (PCR)(АНДРЕЙ) - Final Nasal Mrsa Negative Assess/Plan/Problems-Billing Assessment: - Patient Problems (1) Diabetes Current Visit: Yes Status: Acute Code(s): E11.9 - TYPE 2 DIABETES MELLITUS WITHOUT COMPLICATIONS SNOMED Code(s): 87300087 Comment: New dx, DKA treated and resolved. Start Lantus + Lispro fixed dose , monitor FS achs. Diabetic education + diabetic consult. Needs PCP. (2) Tobacco abuse Current Visit: Yes Status: Acute Code(s): Z72.0 - TOBACCO USE SNOMED Code( s): 694597057 Comment: Pt advised to quit smoking and avoid second hand smoke. He declined my offer of a nicotine patch.
[2017-04-23] MEDS ORDERED: Insulin GLARGINE(*) 1 UNITS UNIT SUBCUT SCH (09:00)
[2017-04-23] MEDS ORDERED: Insulin LISPRO* 1 UNITS UNIT SUBCUT SCH (11:30)
[2017-04-23] MEDS ORDERED: Insulin GLARGINE(*) 1 UNITS UNIT SUBCUT ONE (13:02)
[2017-04-23] MEDS: Enoxaparin(*) 40 MG/0.4 ML SYR SUBCUT SCH (17:34)
[2017-04-23] MEDS: Insulin LISPRO* 1 UNITS UNIT SUBCUT SCH (17:34)
[2017-04-24] MEDS: Insulin LISPRO* 1 UNITS UNIT SUBCUT SCH ×2 (08:03→12:33)
[2017-04-24] MEDS: Al Hydrox/Mg Hydrox/Simet LIQ* 30 ML UDC PO PRN (08:03)
[2017-04-24 08:27] LABS: Hematocrit 39 % (42-52); Hemoglobin 14.1 g/dl (14.0-18.0); Mean Corpuscular HGB Conc 36 g/dl (31-36); Mean Corpuscular Hemoglobin 31 pg (27-31); Mean Corpuscular Volume 86 fL (80-94); Mean Platelet Volume 9 um3 (7.4-10.4); Red Blood Count 4.59 10^6/ul (4.0-5.4); Red Cell Distribution Width 13 % (10.5-15); White Blood Count 11.9 10^3/ul (3.5-10.8)
[2017-04-24 08:33] LABS: BUN/Creatinine Ratio 16.7 (8-20); Calcium 8.4 mg/dL (8.6-10.3); EGFR African American 273.5 (>60); EGFR Non-African American 212.7 (>60)
[2017-04-24] MEDS ORDERED: Insulin GLARGINE(*) 1 UNITS UNIT SUBCUT SCH (09:00)
[2017-04-24] MEDS ORDERED: Potassium Chlor TAB* 20 MEQ TAB.ER PO ONE (10:05)
[2017-04-24 10:25] LABS: Magnesium 1.9 mg/dL (1.9-2.7)
--- NOTE | 2017-04-24 16:15 | CONSULT ---
Subjective Reason for Visit: DKA Admission Date: 04/22/17 Glucose Level On Admission: 540 History Of Present Illness: Mr. Sterling is a 52 year old male who was admitted to [facility] on 04/22/17 with DKA and complaints of weakness, dehydration, and nausea. Reports feeling unwell for several months, experiencing symptoms fatigue, polyuria, polydipsia, and unintentional 20 lbs. weight loss. He has a family history of type II diabetes in his older brother. Patient History Surgical History: None Past Family History: Type II diabetes brother Lives With: Self Marital Status: Single Preferred/Primary Language: Maltese Employed/Unemployed: Employed Review Of Systems - Review of Systems Constant: - - Unintentional weight loss of 20 lbs. over the past several months , weakness Abdominal: - - nausea Neurological: No Sensory Loss, No Parasthesias Over Peripheral Extremities Endocrine: - - polyuria, polydipsia Objective Allergies Allergy/AdvReac Type Severity Reaction Status Date / Time No Known Allergies Allergy Verified 04/22/17 10:54 Home Medications Medication Instructions Recorded Confirmed Type Insulin GLARGINE(*) [Lantus(*)] 25 units SUBCUT Q24H #1 box 04/24/17 Rx Insulin Glargine [Lantus Solostar 25 units SUBCUT DAILY #1 box 04/24/17 Rx 5x3 ML PENS] Insulin LISPRO* [HumaLOG*] 8 units SUBCUT AC unit 04/24/17 Rx Hospital Medications: Current Medications Al Hydrox/Mg Hydrox/Simethicone (Maalox Plus*) 30 ml PO Q4H PRN PRN Reason: . Last Admin: 04/24/17 08:03 Dose: 30 ml Dextrose (D50w Syringe 50 Ml*) 12.5 gm IV PUSH .FOR FS < 60 - SS PRN PRN Reason: FS < 60 Enoxaparin Sodium (Lovenox(*)) 40 mg SUBCUT Q24H [facility] Last Admin: 04/23/17 17:34 Dose: 40 mg Insulin Glargine (Lantus(*)) 25 units SUBCUT Q24H [facility] Last Admin: 04/24/17 08:04 Dose: 25 units Insulin Human Lispro (Humalog*) 8 units SUBCUT AC [facility] Last Admin: 04/24/17 12:33 Dose: 8 units Lab Data: VBG pH 7.21 (7.33-7.43) L 04/22/17 14:15 Sodium 128 mmol/L (133-145) L 04/24/17 08:09 Potassium 3.0 mmol/L (3.5-5.0) L 04/24/17 08:09 BUN 7 mg/dL (6-24) 04/24/17 08:09 Creatinine 0.42 mg/dL (0.67-1.17) L 04/24/17 08:09 Hemoglobin A1c 14.4 % (4.0-5.6) H 04/22/17 13:22 Calcium 8.4 mg/dL (8.6-10.3) L 04/24/17 08:09 Magnesium 1.9 mg/dL (1.9-2.7) 04/24/17 08:09 AST 6 U/L (13-39) L 04/22/17 13:22 ALT 10 U/L (7-52) 04/22/17 13:22 Height: 5 ft 6 in Weight: 55.4 kg Body Mass Index (BMI): 19.7 Physical Exam General Appearance: Positive: Alert, Oriented x3, Well Developed, No Distress, OOB Sitting In Chair Dentition: Positive: Dentition in Good Repair Cardiovascular: Positive: RRR Respiratory: Positive: Non-Labored Abdomin: Positive: Soft Skin: Insulin Injection Sites - benign Plan Of Care Referral To: [facility] For Further OutPT Diabetic Training Diagnosis: Mr. Sterling is a 52 year old male with newly diagnosed type II diabetes. Insulin injection and SMBG education provided with return demonstration. Pt verbalizes adequate understanding of signs, symptoms, and treatment of hypoglycemia. He should follow up at [facility] for further diabetes education. Education Prior Diabetic Education: No Education Provided: Daily Self Injection, Blood Glucose Monitoring, When To Seek Medical Attention Goals Goals: According to the [place] [employer], the following are your goals for Hemaglobin A1C, Blood Glucose, Cholesterol and Blood Pressure. Hemaglobin A1C * <7.0% for most * <6.5% for "healthy" * <8.0% for "Less Healthy" Blood Glucose * Fasting Blood Glucose: 80-130 mg/dl * 2 Hour Post Prandial Glucose <180 mg/dl Cholesterol * Triglycerides <150 * LDL <100, Overt CVD <70 * HDL >40
[2017-04-24 16:31] VITALS: BP 131/78
--- NOTE | 2017-04-25 11:40 | DS ---
AMENDED REPORT NOW INCLUDES COSIGNER DESIGNATION - ESIGNED BEFORE ADJUSTMENTS CC: Dr. Carmine Hernández * DISCHARGE SUMMARY: DATE OF ADMISSION: 04/22/17 DATE OF DISCHARGE: 04/24/17 PRIMARY CARE PROVIDER: To be established, Dr. Carmine Hernández. DISCHARGING PROVIDER: NICCI Jackson SUPERVISING PHYSICIAN: Reena Vinson MD * (DICTATED BY NICCI JACKSON) PRIMARY DISCHARGE DIAGNOSIS: Diabetic ketoacidosis with new diagnosis of diabetes. SECONDARY DISCHARGE DIAGNOSIS: None. DISCHARGE MEDICATIONS: 1. Lantus 25 units subcu daily. 2. Humalog 8 units subcu with meals. MEDICATIONS CHANGES: All medications are new. HOSPITAL IMAGING: Chest x-ray shows no acute process. HOSPITAL COURSE: This is an otherwise healthy 52-year-old gentleman who presented to the emergency department with complaints of fatigue, nausea and dehydration. He provided a history of weight loss at least 20 pounds over the last 6 months ago with progressive fatigue and polydipsia. Initial labs demonstrated a significant leukocytosis with a white blood cell count of 31, 000. Chemistry panel showed a sodium of 123 with serum bicarb of 11 with a gap of 25 and BUN of 35, glucose of 540, normal lactic acid, slightly elevated calcium at 10.4 and a venous blood gas showing a pH of 7.21. Patient did not previously carry the diagnosis of diabetes. He reports that his brother however was diagnosed with diabetes also with the presentation of DKA just about one year prior. The patient was initially admitted to ICU on an insulin drip. His gap closed within 6 hours of admission and patient's complaints of nausea improved significantly. Patient was subsequently transitioned to a basal bolus regimen with decent glycemic control. Patient had no additional acute complaints during his hospital stay. His insulin was titrated to Lantus dose of 20 units daily and Humalog of 8 units with meal time. He was uninsured at the time of admission, but met with Medicaid specialist prior to discharge. Also met with childbirth educator prior to discharge. The patient was extremely receptive to the education that he received regarding his new diagnosis of diabetes. Question whether there is an autoimmune component to his diabetes given his brother's similar presentation just about one year ago and him presenting with rather a significant DKA and he appears to be an otherwise relatively healthy gentleman without obesity. DISPOSITION AND FOLLOWUP PLAN: The patient is being discharged to home. He received a prescription for Lantus and Humalog as well as a glucometer, testing strips, lancets and needles for administration of his insulin. He received extensive education from provider and nursing staff as well as childbirth educator regarding his diagnosis and appropriate use of insulin. He received instructions to please check his glucose before each meal and record the results long with the time and how much insulin was administered and to bring those results to his initial appointment. A referral was initiated to Dr. Hernández to establish primary and endocrinology care as the patient does not previously have a primary care provider. Patient is understanding and receptive to all education given. He should receive a phone call from Dr. Hernández's office shortly after discharge to establish a new patient appointment. NICCI JACKSON [id number]/[facility] #: [id number] [email or web address]
[2017-04-25 14:09] LABS: M tuberculosis by Quantiferon Indeterminate (Negative); TB Ag minus Nil Result 0 IU/mL
[2017-04-25 19:18] LABS: B garinii/B afzelii PCR Negative (Negative); B mayonii PCR Negative (Negative)
== END 2017-04-24 16:30 | disposition home or self-care (01) | DRG 639 ==
LOC: ED 10:44 → ICU 15:05 → MED 04-23 10:10
PROVIDERS: ADMIT Hospitalist; ATTEND Internal Medicine
DX: E11.10 Type 2 diabetes mellitus with ketoacidosis without coma (principal); F17.210 Nicotine dependence, cigarettes, uncomplicated; Z83.3 Family history of diabetes mellitus; Z82.49 Family history of ischemic heart disease and other diseases of the circulatory system
CPT/HCPCS: 36415; 71010; 80048; 80053; 81003; 82803; 83036; 83605; 83690; 83735; 85025; 86140; 86308; 86480; 86703; 87476; 87502; 87641; 87798; 93005; A9270-GY; J1650; J2405

== ENCOUNTER 2019-05-11 20:59 | Inpatient (IN) | payer OTHER ==
[2019-05-11] MEDS ORDERED: NS 0.9% 1000 ML** 1,000 ML IV ONE ×2 (21:13→22:00)
[2019-05-11] MEDS ORDERED: Ondansetron INJ* 2 MG/ML VIAL IV ONE (21:14)
[2019-05-11] MEDS ORDERED: Morphine 4 MG/ML VIAL (1 ml) 4 MG/ML VIAL IV ONE (21:14)
--- NOTE | 2019-05-11 21:23 | ED ---
GI/ HPI - HPI Summary HPI Summary: 54-year-old male presents with abdominal pain for the past couple days. He's had nausea and vomiting this first day. No diarrhea. Had a normal bowel movement today. He states he has been burping a lot and not passing gas. He states his sugars have gotten into the 300s. He states that he has been drinking fluid to keep his sugars down. He states that he started developing severe lower abdominal pain today. He had a fever on monday. He denies any chest pain or shortness breath. No urinary symptoms. No history of colitis or diverticulitis. No previous abdominal surgeries. Only takes metformin for his diabetes. - History of Current Complaint Chief Complaint: EDAbdPain Time Seen by Provider: 05/11/19 21:07 Stated Complaint: ABD PAIN PER PT Pain Intensity: 7 - Additional Pertinent History Primary Care Physician: [id number] - Allergy/Home Medications Allergies/Adverse Reactions: Allergies Allergy/AdvReac Type Severity Reaction Status Date / Time No Known Allergies Allergy Verified 04/22/17 10:54 Home Medications: Home Medications Metformin HCl 500 mg PO BID 05/11/19 [History Confirmed 05/11/19] PMH/Surg Hx/FS Hx/Imm Hx Endocrine/Hematology History: Reports: Hx Diabetes Denies: Hx Anticoagulant Therapy Cardiovascular History: Denies: Hx Myocardial Infarction Sensory History: Denies: Hx Contacts or Glasses, Hx Hearing Aid Opthamlomology History: Denies: Hx Contacts or Glasses Infectious Disease History: No Infectious Disease History: Denies: Traveled Outside the [place] in Last 30 Days - Family History Known Family History: Positive: Diabetes - Brother, Other - Negative cancer - Social History Alcohol Use: Occasionally Substance Use Type: Reports: None Smoking Status (MU): Current Some Day Smoker Review of Systems Negative: Fever Negative: Chest Pain Negative: Shortness Of Breath Positive: Abdominal Pain, Vomiting, Nausea. Negative: Diarrhea All Other Systems Reviewed And Are Negative: Yes Physical Exam Triage Information Reviewed: Yes Vital Signs On Initial Exam: Initial Vitals Temp Pulse Resp BP Pulse Ox 96.9 F 130 20 140/98 97 05/11/19 21:02 05/11/19 21:02 05/11/19 21:02 05/11/19 21:02 05/11/19 21:02 Vital Signs Reviewed: Yes Appearance: Positive: Well-Appearing Skin: Positive: Warm, Dry Head/Face: Positive: Normal Head/Face Inspection Eyes: Positive: Normal, Conjunctiva Clear ENT: Positive: Pharynx normal Respiratory/Lung Sounds: Positive: Clear to Auscultation, Breath Sounds Present Cardiovascular: Positive: Normal, RRR Abdomen Description: Positive: Soft, Other: - tenderness in lower abd Bowel Sounds: Positive: Present Musculoskeletal: Positive: Normal Neurological: Positive: Normal Psychiatric: Positive: Normal Procedures - Sedation Patient Received Moderate/Deep Sedation with Procedure: No Diagnostics - Vital Signs Vital Signs Temp Pulse Resp BP Pulse Ox 05/11/19 21:02 96.9 F 130 20 140/98 97 - Laboratory Result Diagrams: 05/12/19 04:49 05/12/19 04:49 Lab Statement: Any lab studies that have been ordered have been reviewed, and results considered in the medical decision making process. - EKG No standard instances Cardiac Rate: Tachycardia EKG Rhythm: Sinus Tachycardia EKG Comparison: No Significant Change Summary of EKG Findings: sinus tachycardia Re-Evaluation - Re-Evaluation First Eval Re-Evaluation Time: 22:52 Change: Improved Comment: feeling better, is still tachycardiac so will give another 2 liters Second Eval Re-Evaluation Time: 00:40 Comment: discussed results with patient, patient feels well, does not appear ill. no rebound tenderness abd exam. GIGU Course/Dx - Course Course Of Treatment: 54-year-old male presents with abdominal pain for the past couple days. He's had nausea and vomiting. No diarrhea. Had a normal bowel movement today. He states he has been burping a lot. He states his sugars have gotten into the 300s. He states that he has been drinking fluid to keep his sugars down. He states that he started developing severe lower abdominal pain today. He denies any chest pain or shortness breath. No urinary symptoms. No history of colitis or diaphoresis. No previous surgeries. Only takes metformin for his diabetes. On exam has lower abdominal tenderness. Appears uncomfortable. eks shows sinus tachycardia. fingerstick is 265. wbc 14. sodium 127. anion gap 16. glucose is 308. bun 28. gave fluids and insulin 6units. repeat labs no anion gap anymore and bun improved is 25. CT shows acute appendicitis with peripapendical abscess and associated mild small bowel obstruction. discussed with dr mcghee who recommends potential IR drainage and antibiotics and to not do an NG tube at this time. spoke with dr mcghee that can be admitted here and will be decided if needs surgery vs IR tomorrow. dr maria agrees to admit. - Diagnoses Differential Diagnoses - Male: Diverticulitis, Gastroenteritis (Viral), Other - dka Provider Diagnoses: Appendicitis, Appendiceal abscess, Small bowel obstruction Discharge ED - Sign-Out/Discharge Documenting (check all that apply): Patient Departure - Discharge Plan Condition: Guarded Disposition: ADMITTED TO [facility] - Billing Disposition and Condition Condition: GUARDED Disposition: Admitted to [facility] - Attestation Statements Provider Attestation: I was available for consult. This patient was seen by the MADDIE. The patient was not presented to, seen by, or examined by me. Yohan Avila MD
[2019-05-11 21:36] LABS: ABS Basophils 0.1 10^3/ul (0-0.2); ABS Lymphocytes 2.7 10^3/ul (1.0-4.8); ABS Monocytes 0.7 10^3/ul (0-0.8); ABS Neutrophils 11.2 10^3/ul (1.5-7.7); Eosinophil % 0.1 %; Hematocrit 51 % (42-52); Hemoglobin 17.5 g/dL (14.0-18.0); Lymphocyte % 18.4 %; Mean Corpuscular HGB Conc 35 g/dL (31-36); Mean Corpuscular Hemoglobin 31 pg (27-31); Mean Corpuscular Volume 88 fL (80-94); Platelet Count 333 10^3/uL (150-450); Red Blood Count 5.76 10^6 /uL (4.18-5.48); Red Cell Distribution Width 14 % (10-15); White Blood Count 14.7 10^3/uL (3.5-10.8)
[2019-05-11 21:52] LABS: Albumin/Globulin Ratio 1.1 (1-3); BUN/Creatinine Ratio 35.9 (8-20); C Reactive Protein 82.78 mg/L (<8.01); Calcium 9.3 mg/dL (8.6-10.3); EGFR Non-African American 103.3 (>60); Globulin 3.5 g/dL (2-4); Potassium 3.7 mmol/L (3.5-5.0); Total Bilirubin 0.9 mg/dL (0.2-1.0); Total Protein 7.5 g/dL (6.4-8.9)
[2019-05-11 21:54] LABS: Troponin I 0.01 ng/mL (<0.04)
[2019-05-11] MEDS ORDERED: Insulin REGULAR(*) 1 UNITS UNIT IV PUSH ONE (22:10)
[2019-05-11] MEDS ORDERED: NS 0.9% 1000 ML** 2,000 ML IV ONE (22:51)
[2019-05-11] MEDS ORDERED: Iodixanol* (CONTRAST) 320 MG/ML 100 ML SDV IV ONE (22:51)
[2019-05-11 23:44] LABS: BUN/Creatinine Ratio 37.9 (8-20); Calcium 7.8 mg/dL (8.6-10.3); EGFR African American 151.6 (>60); EGFR Non-African American 125.3 (>60); Potassium 3.6 mmol/L (3.5-5.0)
[2019-05-12] MEDS ORDERED: Piperacillin/Tazobac ADVAN(*) 3.375 GM in NS 0.9% 100 ML* 100 ML IVPB ONE (00:33)
[2019-05-12] MEDS ORDERED: NS 0.9% 1000 ML** 1,000 ML IV SCH (02:15)
[2019-05-12] MEDS ORDERED: Zosyn per Pharmacy* NOTE FOLLOW UP SCH (03:00)
[2019-05-12] MEDS: ZOSYN 3.375 GM Q8H per EXTENDED INFUSION IVPB SCH ×6 (04:42→22:23)
[2019-05-12 05:14] LABS: Hematocrit 43 % (42-52); Hemoglobin 14.7 g/dL (14.0-18.0); Mean Corpuscular HGB Conc 35 g/dL (31-36); Mean Corpuscular Hemoglobin 30 pg (27-31); Mean Corpuscular Volume 88 fL (80-94); Platelet Count 212 10^3/uL (150-450); Red Blood Count 4.86 10^6 /uL (4.18-5.48); Red Cell Distribution Width 13 % (10-15); White Blood Count 21.4 10^3/uL (3.5-10.8)
[2019-05-12 05:25] LABS: Activated Partial Thrombo Time 27.4 seconds (26.0-38.0); INR 1.29 (0.82-1.09)
[2019-05-12 05:28] LABS: BUN/Creatinine Ratio 31.7 (8-20); Calcium 7.8 mg/dL (8.6-10.3); EGFR Non-African American 132.2 (>60); Potassium 3.6 mmol/L (3.5-5.0)
--- NOTE | 2019-05-12 05:32 | HP ---
CC: Dr. Carmine Hernández; Dr. Froilan Santizo * ADMISSION HISTORY AND PHYSICAL: DATE OF ADMISSION: 05/12/19 PRIMARY CARE PHYSICIAN: Carmine Hernández MD CHIEF COMPLAINT: Abdominal pain. HISTORY OF PRESENT ILLNESS: This is a 54-year-old male with past medical history of diabetes, currently stable with last A1c of 5.4, was noted to be in his usual state of health up until Monday of last week when he had an episode of vomiting bilious material. He also noted incidentally that his sugars were in the 350 range. He called his primary care provider who suggested the patient to be started on some clear liquids. The patient by Monday had improved. He stated that his vomiting resolved. He was tolerating his clear liquids, although he did have some burping. By , most of his symptoms had subsided. He still had some minimal burping and belching, but otherwise back to his baseline. By Monday, he was back to normal as well and then Monday, around 7:30, he was sleeping and woke up with 1 episode of just a single cough. After the cough, he noticed a severe pain in the periumbilical area, more towards the left side, accompanied by tachypnea, but no real shortness of breath. The patient stated that he was breathing rapidly in order to avoid taking deep breaths, which would exacerbate his abdominal pain. Pain was described as 10/10 excruciating and no alleviating or aggravating factor other than the deep breathing made it worse. He felt feverish and was sweaty. He also felt feverish, sweaty couple of days ago when he first started having symptoms on Monday, but he never actually checked his temperature at home and never had fever even in the emergency room. The patient otherwise offers no complaints such as any vomiting today, any shortness of breath, any chest pain, any palpitations, any diarrhea, any other urinary or bloating sensation, any numbness, tingling, weakness, any vision changes, or headache. PAST MEDICAL HISTORY: As mentioned, type 2 diabetes for which he is on metformin twice a day with the last A1c of 7.4 in April of this year. He was also told that his cholesterol was elevated, but never started on medication. He otherwise does not have any high blood pressure or any stroke or heart attack. He was admitted in 2016 for DKA at which point he was started on some insulin therapy, but over the years, he has lost weight and now only requires just the metformin for diabetes control. PAST SURGICAL HISTORY: None. HOME MEDICATIONS: Just metformin 500 mg p.o. b.i.d. and intermittent use of ibuprofen for pain. ALLERGIES: No known drug allergies. FAMILY HISTORY: Significant for mother, age 75, had high blood pressure. Father in a car accident, age 61, but his father's side does have a history of diabetes, even his brother was diagnosed with diabetes about 3 years ago. 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 Lives with his mom, who is his healthcare proxy. He is otherwise full code. The patient denies any alcohol use or drug use. He has smoked for 25 years about half a pack per day; however, he quit in July 2018 and does state that he has used marijuana in the past occasionally. REVIEW OF SYSTEMS: A 10-point review of systems did not reveal any new information other than what is mentioned in the HPI. PHYSICAL EXAMINATION GENERAL: The patient is awake, alert, and oriented x3, did not appear to be in any acute respiratory distress. VITAL SIGNS: BP was noted to be 105/75, heart rate 105, but was as high as 130 when he initially arrived, respiration rate 16, saturating 94% on room air. HEAD AND NECK: Atraumatic, normocephalic. Bilateral pupils are reactive. Oral mucosa was moist. Neck supple. No jugular venous distention. LUNGS: Clear to auscultation bilaterally. No wheezing, rhonchi, or rales. HEART: S1, S2. Regular, tachycardia. ABDOMEN: Soft. Tender in the left side. No rebound tenderness with normoactive bowel sounds. EXTREMITIES: No cyanosis, clubbing, or edema. DIAGNOSTIC STUDIES/LAB DATA: CBC showed elevated white count of 14.7, hemoglobin and hematocrit stable, platelet count was noted to 333. ABG shows pH of 7.45. Basic metabolic panel shows hyponatremia with sodium of 127, decreased bicarb at 24, BUN elevated at 28, creatinine 0.78, random glucose was noted to be 308. C- reactive protein was noted to be elevated at 82.5. Amylase and lipase were within normal limits. CT abdomen and pelvis, findings showed acute appendicitis with associated periappendiceal abscesses, no perforation, associated mild small bowel obstruction, hepatic lesions, and imaging suggestive of fatty liver infiltration versus atypical hemangiomas, low risk. The patient is recommended followup CT or MR in 6 months. Gastroesophageal reflux suggesting esophagitis, right inguinal hernia, no strangulation. EKG showed sinus tachycardia at 125 beats per minute without any ST elevations. His overall waveform was similar to the previous EKG done in 2017. IMPRESSION: This is a 54-year-old gentleman with history of diabetes, only on metformin, here due to abdominal pain, noted to have CAT scan that showed acute appendicitis with periappendiceal abscess and associated mild small bowel obstruction. ASSESSMENT AND PLAN: 1. Sepsis given elevated white count and tachycardia secondary to appendicitis and periappendiceal abscess without any perforation. Case was discussed with Dr. Santizo who initially recommended IR drainage and antibiotics and not to put any NG tube at this point. However, the case was rediscussed given the fact that it is a weekend and IR drainage may not be available. The surgeon, Dr. Santizo, still did not think an acute surgery is recommended at this point, but he will evaluate the patient in the morning for any surgical drainage. In the meantime, we will continue the Zosyn and the n.p.o. status for possible surgical debridement for morning. Further treatment would be based on Dr. Santizo' evaluation. The patient is otherwise stable, but given his potential for any complication, especially given intraabdominal abscess, we will closely monitor the patient in the intensive care unit. 2. Hyponatremia. Likely secondary to decreased p.o. intake. We will start IV hydration. 3. Sinus tachycardia, likely secondary to sepsis. 4. Type 2 diabetes with elevated sugars, likely secondary to sepsis. There is elevation in sugars, we will start the patient on Accu-Cheks and consider lispro as needed for any diabetic control. 5. DVT prophylaxis with sequential compression device. 6. Code status. Full code. [id number]/[facility] #: [id number] [facility]
[2019-05-12 06:34] LABS: Albumin 3.2 g/dL (3.2-5.2)
[2019-05-12 06:35] LABS: ABS Lymphocytes 1.4 10^3/ul (1.0-4.8); ABS Monocytes 0.9 10^3/ul (0-0.8); ABS Neutrophils 19.1 10^3/ul (1.5-7.7); Lymphocyte % 6.7 %
[2019-05-12 07:14] LABS: Urine Appearance Clear; Urine Bilirubin Negative (Negative); Urine Blood Negative (Negative); Urine Color Yellow; Urine Glucose Negative (Negative); Urine Ketones 1+ (Negative); Urine Nitrite Negative (Negative); Urine Protein Negative (Negative); Urine Specific Gravity 1.043 (1.010-1.030); Urine Urobilinogen Negative (Negative)
[2019-05-12] MEDS ORDERED: Morphine INJ* 2 MG/ML 1 ML SYRINGE (TWO MG - NEW SYRINGE VERSION) IV PRN (07:55)
[2019-05-12] MEDS ORDERED: Ondansetron INJ* 2 MG/ML VIAL IV PRN (07:56)
[2019-05-12] MEDS ORDERED: Morphine INJ* 4 MG/ML 1 ML SYRINGE (NEW SYRINGE VERSION) IV PRN (07:56)
[2019-05-12] MEDS: Morphine INJ* 2 MG/ML 1 ML SYRINGE (TWO MG - NEW SYRINGE VERSION) IV PRN (08:10)
--- NOTE | 2019-05-12 10:39 | PN ---
Subjective - Subjective Reason for Note: Progress Note History: I reviewed the presenting history with Ollie Sterling and Dr. Sly Alberto's admitting history and physical. He had a biphasic presentation. He developed fever and nausea 5 days before presentation. There was no associated pain. His glucose levels went above 300 mg/dl. This improved with hydration and rest. His glucose came down into the low 200s. However, he presented yesterday with severe abdominal pain, associated with fever. Today his pain control has improved. He feels thirsty. I spoke with Dr. Froilan Santizo, who will take him to surgery later today. Active Problems: Active Problems Abscess, periappendiceal (Acute) K35.33 Acute appendicitis (Acute) K35.80 Sepsis (Acute) Diabetes (Chronic) E11.9 New dx, DKA treated and resolved. Start Lantus + Lispro fixed dose, monitor FS achs. Diabetic education + diabetic consult. Needs PCP. Tobacco abuse (Chronic) Z72.0 Pt advised to quit smoking and avoid second hand smoke. He declined my offer of a nicotine patch. Current Medications: Current Medications Sodium Chloride (Ns 0.9% 1000 Ml) 1,000 mls @ 100 mls/hr IV PER RATE [facility] Last Admin: 05/12/19 03:26 Dose: 100 mls/hr Piperacillin Sod/Tazobactam (Sod 3.375 gm/ Sodium Chloride) 100 mls @ 25 mls/ hr IVPB 0600,1400,2200 [facility] Last Admin: 05/12/19 04:42 Dose: 25 mls/hr Morphine Sulfate (Morphine Inj (Syringe))*) 1 mg IV Q4H PRN PRN Reason: PAIN - MILD Morphine Sulfate (Morphine Inj (Syringe))*) 2 mg IV Q4H PRN PRN Reason: PAIN - MODERATE Last Admin: 05/12/19 08:10 Dose: 2 mg Morphine Sulfate (Morphine Inj (Syringe)*) 4 mg IV Q4H PRN PRN Reason: PAIN - SEVERE Ondansetron HCl (Zofran Inj*) 4 mg IV Q4H PRN PRN Reason: NAUSEA Pharmacy Consult (Zosyn Per Pharmacy*) 1 note FOLLOW UP .ZOSYN PER PHARMACY [facility] - Review of Systems Constitutional Symptoms: Yes: Fatigue, Fever Pulmonary: Negative: Cough, Sputum, Hemoptysis, Respiratory Distress, Shortness of Breath Cardiology: Negative: Chest Pain, Palpitations Gastroenterology: Positive: Abdominal Pain - right lower quadrant Negative: Nausea, Vomiting Home Medications: Home Medications Medication Instructions Recorded Confirmed Type Metformin HCl 500 mg PO BID 05/11/19 05/11/19 History Allergies: Allergies Allergy/AdvReac Type Severity Reaction Status Date / Time No Known Allergies Allergy Verified 04/22/17 10:54 Objective - Vital Signs Vital Signs: Vital Signs 05/11/19 05/11/19 05/11/19 21:02 21:15 21:17 Temperature 96.9 F Pulse Rate 130 120 125 Respiratory 20 Rate Blood Pressure 140/98 140/103 (mmHg) O2 Sat by Pulse 97 98 99 Oximetry 05/11/19 05/11/19 05/11/19 21:41 21:43 22:00 Temperature Pulse Rate 113 114 Respiratory 18 Rate Blood Pressure 117/86 (mmHg) O2 Sat by Pulse 98 99 Oximetry 05/11/19 05/11/19 05/11/19 22:13 22:43 22:48 Temperature Pulse Rate 110 114 115 Respiratory Rate Blood Pressure 123/88 126/81 (mmHg) O2 Sat by Pulse 97 97 97 Oximetry 05/11/19 05/11/19 05/12/19 23:00 23:13 00:00 Temperature Pulse Rate 118 118 112 Respiratory Rate Blood Pressure 119/75 (mmHg) O2 Sat by Pulse 97 97 96 Oximetry 05/12/19 05/12/19 05/12/19 00:13 00:44 01:38 EDT Temperature Pulse Rate 109 105 111 Respiratory Rate Blood Pressure 126/88 117/90 116/80 (mmHg) O2 Sat by Pulse 97 97 96 Oximetry 05/12/19 05/12/19 05/12/19 01:00 EST 01:18 EST 02:00 Temperature Pulse Rate 107 104 104 Respiratory Rate Blood Pressure 107/75 107/75 (mmHg) O2 Sat by Pulse 94 95 94 Oximetry 05/12/19 05/12/19 05/12/19 02:13 02:43 03:01 Temperature Pulse Rate 107 108 100 Respiratory Rate Blood Pressure 112/81 105/75 (mmHg) O2 Sat by Pulse 95 88 96 Oximetry 05/12/19 05/12/19 05/12/19 03:05 03:10 03:15 Temperature 98.6 F 97.8 F Pulse Rate 107 105 104 Respiratory 20 20 Rate Blood Pressure 122/85 122/85 114/84 (mmHg) O2 Sat by Pulse 95 95 96 Oximetry 05/12/19 05/12/19 05/12/19 03:31 04:00 05:00 Temperature 98.6 F Pulse Rate 97 97 Respiratory 17 15 Rate Blood Pressure 117/81 114/80 (mmHg) O2 Sat by Pulse 97 97 Oximetry 05/12/19 05/12/19 05/12/19 06:00 07:00 07:31 Temperature 98.1 F Pulse Rate 98 94 Respiratory 17 20 Rate Blood Pressure 109/74 129/89 (mmHg) O2 Sat by Pulse 96 96 Oximetry 05/12/19 05/12/19 05/12/19 08:00 08:01 08:10 Temperature Pulse Rate 91 98 Respiratory 18 18 20 Rate Blood Pressure 115/75 (mmHg) O2 Sat by Pulse 97 Oximetry 05/12/19 08:19 Temperature Pulse Rate 96 Respiratory 20 Rate Blood Pressure 125/85 (mmHg) O2 Sat by Pulse 95 Oximetry - Intake and Output Intake and Output: Intake & Output 05/09/19 05/10/19 05/11/19 05/12/19 11:59 11:59 11:59 10:59 Intake Total 299 Output Total 500 Balance -201 Weight 126 lb 12.253 oz Intake: IV Fluids 264 NS (0.9%) 264 IVPB 35 ABX - ZOSYN 35 Output: Urine 500 ADLs: Meal Record Start: 05/12/19 03: 10 Freq: 09,13,18 Status: Active Protocol: Created 05/12/19 03:10 System (Rec: 05/12/19 03:10 System [id number]) Intake and Output Start: 05/11/19 21: 05 Freq: Status: Active Protocol: Created 05/11/19 21:05 System (Rec: 05/11/19 21:05 System [id number]) Intake and Output Start: 05/12/19 03: 10 Freq: Q1HR Status: Active Protocol: Created 05/12/19 03:10 System (Rec: 05/12/19 03:10 System [id number]) Document 05/12/19 01:00 EST [id number] (Rec: 05/12/19 04:45 [id number] ICU- M23) Document 05/12/19 05:00 [id number] (Rec: 05/12/19 05:14 ICU-C25) Document 05/12/19 06:00 [id number] (Rec: 05/12/19 06:09 ICU-C25) Document 05/12/19 07:00 [id number] (Rec: 05/12/19 07:11 [id number] [id number]) - Physical Exam General: No Cyanosis, No Anemia, No Jaundice, No Clubbing Endocrine: No Central Obesity, No Acromegaly, No Vitiligo, No Flushing, No Acanthosis nigricans, No Violaceious striae, No Clinton Syndrome, No Buccal pigmenatation, No Mills Crease Pigmentation Lungs and Chest: Yes: Chest Expansion Full, Chest Expansion Symetrica, Percussion Note Resonant, Vessicular Breath Sounds. No: Crackles, Wheezes Heart Rate and Rhythm: Regular Additional Cardiovascular: Yes: Normal Heart Sounds. No: Heart Murmur, Pedal Edema Abdominal Exam: Yes: Distention, Soft, Abdominal Tenderness, Guarding, Bowel Sounds Present. No: Rigidity, Rebound Tenderness - Extremities Cranial Nerves II-XII Intact: Yes Limbs: Normal Power, Normal Tone - Neuro Orientation: A/O x3 Psychiatric: Normal Speech: Normal Results - Results Lab Results: Laboratory Results - last 24 hr 05/11/19 05/11/19 05/11/19 21:26 21:29 21:29 WBC 14.7 H RBC 5.76 H Hgb 17.5 Hct 51 MCV 88 MCH 31 MCHC 35 RDW 14 Plt Count 333 MPV 9.0 Neut % (Auto) 76.2 Lymph % (Auto) 18.4 Reeves % (Auto) 4.8 Eos % (Auto) 0.1 Baso % (Auto) 0.5 Absolute Neuts (auto) 11.2 H Absolute Lymphs (auto) 2.7 Absolute Monos (auto) 0.7 Absolute Eos (auto) 0.0 Absolute Basos (auto) 0.1 Absolute Nucleated RBC 0.0 Immature Gran % Neutrophils % Band Neutrophils % Lymphocytes % Monocytes % Nucleated RBC % 0.0 Normal RBC Morphology INR (Anticoag Therapy) APTT VBG pH VBG pCO2 VBG pO2 VBG HCO3 VBG O2 Saturation VBG Base Excess Sodium 127 L Potassium 3.7 Chloride 91 L Carbon Dioxide 20 L Anion Gap 16 H BUN 28 H Creatinine 0.78 Est GFR ( Amer) 125.0 Est GFR (Non-Af Amer) 103.3 BUN/Creatinine Ratio 35.9 H Glucose 308 H POC Glucose (mg/dL) 265 H Lactic Acid Calcium 9.3 Magnesium 2.0 Total Bilirubin 0.90 AST 8 L ALT 9 Alkaline Phosphatase 109 H Troponin I 0.01 C-Reactive Protein 82.78 H Total Protein 7.5 Albumin 4.0 Globulin 3.5 Albumin/Globulin Ratio 1.1 Amylase 30 Lipase 22 Urine Color Urine Appearance Urine pH Ur Specific [place] Urine Protein Urine Ketones Urine Blood Urine Nitrate Urine Bilirubin Urine Urobilinogen Ur Leukocyte Esterase Urine Glucose 05/11/19 05/11/19 05/11/19 21:29 21:29 23:21 WBC RBC Hgb Hct MCV MCH MCHC RDW Plt Count MPV Neut % (Auto) Lymph % (Auto) Reeves % (Auto) Eos % (Auto) Baso % (Auto) Absolute Neuts (auto) Absolute Lymphs (auto) Absolute Monos (auto) Absolute Eos (auto) Absolute Basos (auto) Absolute Nucleated RBC Immature Gran % Neutrophils % Band Neutrophils % Lymphocytes % Monocytes % Nucleated RBC % Normal RBC Morphology INR (Anticoag Therapy) APTT VBG pH 7.45 H VBG pCO2 33 L VBG pO2 55.0 H VBG HCO3 24.3 VBG O2 Saturation 87.8 H VBG Base Excess -0.4 L Sodium 130 L Potassium 3.6 Chloride 96 L Carbon Dioxide 24 Anion Gap 10 BUN 25 H Creatinine 0.66 L Est GFR ( Amer) 151.6 Est GFR (Non-Af Amer) 125.3 BUN/Creatinine Ratio 37.9 H Glucose 246 H POC Glucose (mg/dL) Lactic Acid 1.4 Calcium 7.8 L Magnesium Total Bilirubin AST ALT Alkaline Phosphatase Troponin I C-Reactive Protein Total Protein Albumin Globulin Albumin/Globulin Ratio Amylase Lipase Urine Color Urine Appearance Urine pH Ur Specific [place] Urine Protein Urine Ketones Urine Blood Urine Nitrate Urine Bilirubin Urine Urobilinogen Ur Leukocyte Esterase Urine Glucose 05/12/19 05/12/19 05/12/19 04:33 04:49 04:49 WBC RBC Hgb Hct MCV MCH MCHC RDW Plt Count MPV Neut % (Auto) Lymph % (Auto) Reeves % (Auto) Eos % (Auto) Baso % (Auto) Absolute Neuts (auto) Absolute Lymphs (auto) Absolute Monos (auto) Absolute Eos (auto) Absolute Basos (auto) Absolute Nucleated RBC Immature Gran % Neutrophils % Band Neutrophils % Lymphocytes % Monocytes % Nucleated RBC % Normal RBC Morphology INR (Anticoag Therapy) 1.29 H APTT 27.4 VBG pH VBG pCO2 VBG pO2 VBG HCO3 VBG O2 Saturation VBG Base Excess Sodium 132 L Potassium 3.6 Chloride 101 Carbon Dioxide 22 Anion Gap 9 BUN 20 Creatinine 0.63 L Est GFR ( Amer) 160.0 Est GFR (Non-Af Amer) 132.2 BUN/Creatinine Ratio 31.7 H Glucose 177 H POC Glucose (mg/dL) 149 H Lactic Acid Calcium 7.8 L Magnesium Total Bilirubin AST ALT Alkaline Phosphatase Troponin I C-Reactive Protein Total Protein Albumin 3.2 Globulin Albumin/Globulin Ratio Amylase Lipase Urine Color Urine Appearance Urine pH Ur Specific [place] Urine Protein Urine Ketones Urine Blood Urine Nitrate Urine Bilirubin Urine Urobilinogen Ur Leukocyte Esterase Urine Glucose 05/12/19 05/12/19 04:49 07:00 WBC 21.4 H RBC 4.86 Hgb 14.7 Hct 43 MCV 88 MCH 30 MCHC 35 RDW 13 Plt Count 212 MPV 9.0 Neut % (Auto) 89.1 Lymph % (Auto) 6.7 Reeves % (Auto) 4.0 Eos % (Auto) 0.0 Baso % (Auto) 0.2 Absolute Neuts (auto) 19.1 H Absolute Lymphs (auto) 1.4 Absolute Monos (auto) 0.9 H Absolute Eos (auto) 0.0 Absolute Basos (auto) 0.0 Absolute Nucleated RBC 0.0 Immature Gran % 12.0 H Neutrophils % 75.0 Band Neutrophils % 12.0 H Lymphocytes % 6.0 Monocytes % 7.0 Nucleated RBC % 0.0 Normal RBC Morphology Normal INR (Anticoag Therapy) APTT VBG pH VBG pCO2 VBG pO2 VBG HCO3 VBG O2 Saturation VBG Base Excess Sodium Potassium Chloride Carbon Dioxide Anion Gap BUN Creatinine Est GFR ( Amer) Est GFR (Non-Af Amer) BUN/Creatinine Ratio Glucose POC Glucose (mg/dL) Lactic Acid Calcium Magnesium Total Bilirubin AST ALT Alkaline Phosphatase Troponin I C-Reactive Protein Total Protein Albumin Globulin Albumin/Globulin Ratio Amylase Lipase Urine Color Yellow Urine Appearance Clear Urine pH 5.0 Ur Specific [place] 1.043 H Urine Protein Negative Urine Ketones 1+ A Urine Blood Negative Urine Nitrate Negative Urine Bilirubin Negative Urine Urobilinogen Negative Ur Leukocyte Esterase Negative Urine Glucose Negative Radiology Results: Patient Name: OLLIE STERLING Medical Record#: [id number] Ordering Physician: Sofiya GRAJEDA Acct.#: [id number] : 1965 Age: 54 Sex: M Location: EMERGENCY DEPARTMENT Exam Date: 05/11/192114 ADM Status: REG ER Order Information: CT ABD/PEL W Accession Number: [id number] CPT: 81364 ADDENDUM Addendum created by Kori Douglas MD on 05/12/2019 12:43:50 AM EDT THIS REPORT CONTAINS FINDINGS THAT MAY BE CRITICAL TO PATIENT CARE. The findings were verbally communicated via telephone conference with SOFIYA SONI at 12:43 AM EDT on 05/12/2019. The findings were acknowledged and understood. Initial report created on 05/12/2019 12:28:15 AM EDT PROCEDURE INFORMATION: Exam: CT Abdomen And Pelvis With Contrast Exam date and time: 05/11/2019 11:43 PM Clinical history: 54 years old, male; Abdominal pain; Localized; Lower; Additional info: Lower abd pain TECHNIQUE: Imaging protocol: Computed tomography of the abdomen and pelvis with intravenous contrast. Radiation optimization: All CT scans at this facility use at least one of these dose optimization techniques: automated exposure control; mA and/or kV adjustment per patient size (includes targeted exams where dose is matched to clinical indication); or iterative reconstruction. Contrast material: VISIPAQUE 320; Contrast volume: 78 ml; Contrast route: LEFT AC; COMPARISON: PANC US PANCREAS 07/24/2017 8:42 AM FINDINGS: Lungs: The visualized portions of the lung bases are normal. Mediastinum: Enteric contrast within the distal esophagus which is thick walled. No adjacent stranding. Liver: Low attenuating lesions throughout the liver including segment II measuring 1.8 cm (series 2, image 10) and segment measuring 1.5 cm (series 2, image 21). Lesions are isointense on delayed phase. No enhancing liver lesions. Normal liver size. Gallbladder and bile ducts: Layering high attenuating gallbladder sludge. No radiopaque gallstones, wall thickening, or pericholecystic fluid. No intra-or extrahepatic biliary dilation. Pancreas: Normal. No ductal dilation. Spleen: Normal. No splenomegaly. Adrenals: Normal. No mass. Kidneys and ureters: No renal solid cortical lesions, calculi, or pelvocaliectasis. Stomach and bowel: Incompletely distended grossly normal stomach. Dilated proximal jejunal small bowel loops with a transition in the left lower quadrant do to a short segment of reactive thickwalled small bowel (series 601, image [facility] [place] [facility] Patient Name:OLLIE STERLING MR: [id number] : 1965 51). Enteric contrast extends through the small bowel to the transition. Small bowel loops past the thick walled segment are collapsed. No segmental wall thickening or masses throughout the colon. Appendix: Dilated thick walled appendix which contains 2 appendicoliths and measures up to 1.7 cm. Moderate periappendiceal inflammatory stranding within a capsulated fluid collection seen about the appendix in the mesentery measuring 3.8 x 2.9 x 4.3 cm (series 2/601, image 57/54). Stranding extends into the lower right paracolic gutter. No additional capsulated fluid collections. Intraperitoneal space: Small-volume ascites. No hemorrhage or pneumoperitoneum. Vasculature: The aorta demonstrates mild atherosclerotic calcification. Patent IVC. Lymph nodes: Normal. No enlarged lymph nodes. Bladder: Thin-walled bladder with no focal nodularity, perivesicular stranding, or calcifications. Reproductive: Normal sized prostate. Normal seminal vesicles. Bones/joints: No fractures. No suspicious bone lesions. Soft tissues: Fat-containing right direct inguinal hernia. No stranding. IMPRESSION: 1. Acute appendicitis with associated periappendiceal abscess. No perforation. Associated mild small bowel obstruction. 2. Hepatic lesions with imaging characteristics suggesting focal fatty infiltration versus atypical hemangiomas. For low risk patients, recommend follow up CT or MR in 6 months. For average risk patients, recommend multiphasic MRI or follow up CT or MR in 6 months. For high risk patients, recommend multiphasic MRI and consider biopsy (core preferred). 3. Gastroesophageal reflux and findings suggesting esophagitis. 4. Right inguinal hernia. No strangulation. COMMENT: Consistent with the [employer]'s Incidental Findings Committee Report (J Am Kang Radiol 2010): Unless the patient's specific circumstances suggest otherwise, any liver lesion 0.5 cm or less, any cystic kidney lesion less than 1.0 cm, and/or any adrenal lesion 1.0 cm or less not otherwise characterized in this report as possessing suspicious or indeterminate imaging features is/are highly likely to be benign and do not require follow-up imaging or biopsy. To contact [facility] with a general question: Operations Center - [phone] For direct physician to physician contact: Physician Hotline - [phone] [facility] ([facility] Facility ID #[id number]) <Electronically signed by Kori Douglas MD in OV>[birth year]1942 Dictated by: Kori Duoglas MD Dictated Date/Time:05/11/192342 Transcribed Date/Time: 05/11/192342 Benefits Sales Consultant EKG Report: EKG reviewed: Rate 125, sinus tachycardia, MN 124 QTc 437 QRSD [address] segment changes. Assessment - Problem List Assessment: Patient Problems Abscess, periappendiceal (Acute) Acute appendicitis (Acute) Sepsis (Acute) Diabetes (Chronic) Tobacco abuse (Chronic) Plan: Abscess, periappendiceal (Acute) Acute appendicitis (Acute) He had a biphasic presentation. 5 days ago he had fever and vomiting, but no pain. This may relate to his appendix bursting and an abscess forming. He developed peritonitis in the second phase with severe pain. There may be another explanation, but this will be revealed during surgical management. Sepsis (Acute) His WBC and pulse rate have improved. His BP is well maintained Diabetes (Chronic) He has type 2 diabetes - this was uncontrolled at presentation, but improved with hydration. I will add some insulin coverage. He usually manages his diabetes with diet/metformin. I will start him on coverage and add some 5% dextrose to his IVF. Tobacco abuse (Chronic) I will address this (again) post-operatively Pain management - I have elected to provide him with morphine sulphate in the acute phase, but I will transition him off opiates post operatively He is at low cardiovascular risk from surgery and there are no barriers to surgical management/requirement for additional measures.
[2019-05-12] MEDS ORDERED: Dextrose 50% VIAL 50 ml IV PUSH PRN (10:51)
--- NOTE | 2019-05-12 10:52 | CONSULT ---
Consult Consult: CC: perforated appendicitis with abscess HPI: 54 yo M with DM2 presented to ED with 1 day abd pain. He noted fever, N/ V that started 4-5 days prior and lasted for a day. He thought it was food poisoning from a bagel sandwich he ate. He tried Tylenol without relief. After the fever/N/V abated he had "lots of gas" been home in bed trying to stay hydrated, only taking liquids. He hasn't passed flatut in several days. He doesn't report any abd pain until last PM when he woke up after a nap and coughed. At that point he had excruciating pain and his friend drove him to the ED. ED work-up included CT imaging which identified perforated appendicitis with adjacent abscess and SBO. He was tachycardic to 130s at that time and received 4 L IVF. He was also hyponatremic. He was admitted to ICU for further resuscitation. PMH: DM2 PSH: none Meds: metformin All: NKA SH: ex-tob user (12+ pk/yr; quit 2018); rare EtOH FH: DM, HTN ROS: 14 point review completed and +/- as above, otherwise was negative. PE: Vital Signs Temp 98.1 F 05/12/19 07:31 Pulse 97 05/12/19 10:01 Resp 17 05/12/19 10:01 BP 104/87 05/12/19 10:01 Pulse Ox 97 05/12/19 10:01 Gen: NAD; lying in ICU bed. HEENT: NCAT; EOMI; no umair/rhinorrhea. Anicteric sclera. Abd: no scars; slight distension; soft with tenderness in lower abd; no rebound. Ext: warm; no edema. Intake & Output 05/11/19 05/12/19 05/12/19 19:59 06:59 18:59 Intake Total Output Total 400 Balance -400 Weight Intake: IV Fluids NS (0.9%) IVPB ABX - ZOSYN Output: Urine 400 Laboratory Results - last 24 hr 05/11/19 05/11/19 05/11/19 21:26 21:29 21:29 WBC 14.7 H RBC 5.76 H Hgb 17.5 Hct 51 MCV 88 MCH 31 MCHC 35 RDW 14 Plt Count 333 MPV 9.0 Neut % (Auto) 76.2 Lymph % (Auto) 18.4 [place] % (Auto) 4.8 Eos % (Auto) 0.1 Baso % (Auto) 0.5 Absolute Neuts (auto) 11.2 H Absolute Lymphs (auto) 2.7 Absolute Monos (auto) 0.7 Absolute Eos (auto) 0.0 Absolute Basos (auto) 0.1 Absolute Nucleated RBC 0.0 Immature Gran % Neutrophils % Band Neutrophils % Lymphocytes % Monocytes % Nucleated RBC % 0.0 Normal RBC Morphology INR (Anticoag Therapy) APTT VBG pH VBG pCO2 VBG pO2 VBG HCO3 VBG O2 Saturation VBG Base Excess Sodium 127 L Potassium 3.7 Chloride 91 L Carbon Dioxide 20 L Anion Gap 16 H BUN 28 H Creatinine 0.78 Est GFR ( Amer) 125.0 Est GFR (Non-Af Amer) 103.3 BUN/Creatinine Ratio 35.9 H Glucose 308 H POC Glucose (mg/dL) 265 H Lactic Acid Calcium 9.3 Magnesium 2.0 Total Bilirubin 0.90 AST 8 L ALT 9 Alkaline Phosphatase 109 H Troponin I 0.01 C-Reactive Protein 82.78 H Total Protein 7.5 Albumin 4.0 Globulin 3.5 Albumin/Globulin Ratio 1.1 Amylase 30 Lipase 22 Urine Color Urine Appearance Urine pH Ur Specific [place] Urine Protein Urine Ketones Urine Blood Urine Nitrate Urine Bilirubin Urine Urobilinogen Ur Leukocyte Esterase Urine Glucose 05/11/19 05/11/19 05/11/19 21:29 21:29 23:21 WBC RBC Hgb Hct MCV MCH MCHC RDW Plt Count MPV Neut % (Auto) Lymph % (Auto) [place] % (Auto) Eos % (Auto) Baso % (Auto) Absolute Neuts (auto) Absolute Lymphs (auto) Absolute Monos (auto) Absolute Eos (auto) Absolute Basos (auto) Absolute Nucleated RBC Immature Gran % Neutrophils % Band Neutrophils % Lymphocytes % Monocytes % Nucleated RBC % Normal RBC Morphology INR (Anticoag Therapy) APTT VBG pH 7.45 H VBG pCO2 33 L VBG pO2 55.0 H VBG HCO3 24.3 VBG O2 Saturation 87.8 H VBG Base Excess -0.4 L Sodium 130 L Potassium 3.6 Chloride 96 L Carbon Dioxide 24 Anion Gap 10 BUN 25 H Creatinine 0.66 L Est GFR ( Amer) 151.6 Est GFR (Non-Af Amer) 125.3 BUN/Creatinine Ratio 37.9 H Glucose 246 H POC Glucose (mg/dL) Lactic Acid 1.4 Calcium 7.8 L Magnesium Total Bilirubin AST ALT Alkaline Phosphatase Troponin I C-Reactive Protein Total Protein Albumin Globulin Albumin/Globulin Ratio Amylase Lipase Urine Color Urine Appearance Urine pH Ur Specific [place] Urine Protein Urine Ketones Urine Blood Urine Nitrate Urine Bilirubin Urine Urobilinogen Ur Leukocyte Esterase Urine Glucose 05/12/19 05/12/19 05/12/19 04:33 04:49 04:49 WBC RBC Hgb Hct MCV MCH MCHC RDW Plt Count MPV Neut % (Auto) Lymph % (Auto) [place] % (Auto) Eos % (Auto) Baso % (Auto) Absolute Neuts (auto) Absolute Lymphs (auto) Absolute Monos (auto) Absolute Eos (auto) Absolute Basos (auto) Absolute Nucleated RBC Immature Gran % Neutrophils % Band Neutrophils % Lymphocytes % Monocytes % Nucleated RBC % Normal RBC Morphology INR (Anticoag Therapy) 1.29 H APTT 27.4 VBG pH VBG pCO2 VBG pO2 VBG HCO3 VBG O2 Saturation VBG Base Excess Sodium 132 L Potassium 3.6 Chloride 101 Carbon Dioxide 22 Anion Gap 9 BUN 20 Creatinine 0.63 L Est GFR ( Amer) 160.0 Est GFR (Non-Af Amer) 132.2 BUN/Creatinine Ratio 31.7 H Glucose 177 H POC Glucose (mg/dL) 149 H Lactic Acid Calcium 7.8 L Magnesium Total Bilirubin AST ALT Alkaline Phosphatase Troponin I C-Reactive Protein Total Protein Albumin 3.2 Globulin Albumin/Globulin Ratio Amylase Lipase Urine Color Urine Appearance Urine pH Ur Specific [place] Urine Protein Urine Ketones Urine Blood Urine Nitrate Urine Bilirubin Urine Urobilinogen Ur Leukocyte Esterase Urine Glucose 05/12/19 05/12/19 04:49 07:00 WBC 21.4 H RBC 4.86 Hgb 14.7 Hct 43 MCV 88 MCH 30 MCHC 35 RDW 13 Plt Count 212 MPV 9.0 Neut % (Auto) 89.1 Lymph % (Auto) 6.7 [place] % (Auto) 4.0 Eos % (Auto) 0.0 Baso % (Auto) 0.2 Absolute Neuts (auto) 19.1 H Absolute Lymphs (auto) 1.4 Absolute Monos (auto) 0.9 H Absolute Eos (auto) 0.0 Absolute Basos (auto) 0.0 Absolute Nucleated RBC 0.0 Immature Gran % 12.0 H Neutrophils % 75.0 Band Neutrophils % 12.0 H Lymphocytes % 6.0 Monocytes % 7.0 Nucleated RBC % 0.0 Normal RBC Morphology Normal INR (Anticoag Therapy) APTT VBG pH VBG pCO2 VBG pO2 VBG HCO3 VBG O2 Saturation VBG Base Excess Sodium Potassium Chloride Carbon Dioxide Anion Gap BUN Creatinine Est GFR ( Amer) Est GFR (Non-Af Amer) BUN/Creatinine Ratio Glucose POC Glucose (mg/dL) Lactic Acid Calcium Magnesium Total Bilirubin AST ALT Alkaline Phosphatase Troponin I C-Reactive Protein Total Protein Albumin Globulin Albumin/Globulin Ratio Amylase Lipase Urine Color Yellow Urine Appearance Clear Urine pH 5.0 Ur Specific [place] 1.043 H Urine Protein Negative Urine Ketones 1+ A Urine Blood Negative Urine Nitrate Negative Urine Bilirubin Negative Urine Urobilinogen Negative Ur Leukocyte Esterase Negative Urine Glucose Negative CT images reviewed. Has appendicitis with 2 fecaliths and periappendiceal abscess with adjacent SB inflammation causing SBO. He has RIH. Hepatic lesions for which f/u CT 6mos was recommended vs MRI. Impression: 54 yo M with DM2, 4-5 day h/o fever/NV, now abd pain, CT showing appendicitis with abscess and SBO. Likely this is delayed presentation of appendicitis with perforation. Plan/Rec: Finding reviewed with patient. The management options were discussed. Recommendation is for surgical intervention. Plan for laparoscopy, drainage of abscess, appendectomy. Nature of the procedure, indications, risks , benefits, alternatives and option of no treatment discussed. Perioperative risks explained including, not limited to: bleeding, infection, pain, scarring , blood clots, pneumonia, visceral injury, N/V and risks of GETA. All questions answered. He stated understanding and agrees to proceed. Keep NPO. Continue Zosyn/IVF.
[2019-05-12] MEDS ORDERED: Insulin GLARGINE(*) 1 UNITS UNIT SUBCUT SCH (11:00)
[2019-05-12] MEDS ORDERED: D5LR 20 MEQ KCL 1000 ML BAG* 1,000 ML IV SCH (11:00)
[2019-05-12] MEDS ORDERED: Rocuronium* 10 MG/ML VIAL ONE (11:01)
[2019-05-12] MEDS ORDERED: fentaNYL* 50 MCG/ML 2 ML VIAL (100 MCG VIAL) ONE ×2 (11:01→12:06)
[2019-05-12] MEDS ORDERED: Midazolam* 1 MG/ML 5 ML VIAL (5 MG) ONE (11:02)
[2019-05-12] MEDS ORDERED: Succinylcholine* 20 MG/ML 10 ML VIAL ONE (11:03)
[2019-05-12] MEDS ORDERED: DiMENhydriNATE IV* 50 MG/ML VIAL ONE (11:03)
[2019-05-12] MEDS ORDERED: Ondansetron INJ* 2 MG/ML VIAL ONE (11:03)
[2019-05-12] MEDS ORDERED: Propofol* 10 MG/ML 20 ML BTL ONE (11:03)
[2019-05-12] MEDS ORDERED: Dexamethasone IV* 4 MG/ML 1 ML (4 MG) ONE (11:03)
[2019-05-12] MEDS ORDERED: Ketorolac INJ* 30 MG/ML 1 ML VIAL ONE (11:03)
[2019-05-12] MEDS ORDERED: Bupivacaine 0.25% SDV PF* 10 ML VIAL INJ ONE (11:24)
[2019-05-12] MEDS ORDERED: Acetaminophen IV 1GM/100ML * 1,000 MG/100 ML VIAL IVPB ONE (12:20)
[2019-05-12] MEDS ORDERED: DiMENhydriNATE IV* 50 MG/ML VIAL IV PUSH PRN (12:20)
[2019-05-12] MEDS ORDERED: HYDROmorphone INJ1* 1 MG/ML SYRINGE IV PRN (12:20)
[2019-05-12] MEDS ORDERED: Naloxone* 0.4 MG/ML 1 ML VIAL IV PRN (12:20)
[2019-05-12] MEDS ORDERED: HYDROmorphone INJ1* 1 MG/ML SYRINGE ONE (13:19)
[2019-05-12] MEDS ORDERED: Acetaminophen IV 1GM/100ML * 100 ML ONE (13:49)
--- NOTE | 2019-05-12 13:56 | OP ---
Operative Report - Blank - Operative Report Date of Operation: 05/12/19 Note: PREOP DX: ACUTE APPENDICITIS; INTRAPERITONEAL ABSCESSES; SBO POSTOP DX: SAME PROC: LAP ALEJANDRO; DRAINAGE OF MULTIPLE INTRAPERITONEAL ABSCESSES; APPENDECTOMY SURG:MECENAS ASSIST: NONE ANES: GET; EBL: MINIMAL IVF: LR SPEC: 1) ABSCESS FLUID 2)APPENDIX WITH FECALITH DRAIN: 7MM MISHEL COMPL:NONE FINDINGS: ABOVE
[2019-05-12] MEDS: NS 0.9% w/ 20 Meq KCL 1000 ML* 1,000 ML IV SCH (16:25)
[2019-05-12] MEDS: Insulin LISPRO* 1 UNITS UNIT SUBCUT SCH ×4 (16:27→22:23)
--- NOTE | 2019-05-12 23:56 | OP ---
CC: Carmine Hernández MD * DATE OF OPERATION: 05/12/19 - ROOM #335 DATE OF : 63 SURGEON: Froilan Santizo MD. OPTOMETRIST/PRACTICE OWNER: None. ANESTHESIOLOGIST: Dr. Serrano. ANESTHESIA: General endotracheal. PRE-OP DIAGNOSIS: Acute appendicitis with intraperitoneal abscesses and small bowel obstruction. POST-OP DIAGNOSIS: Acute appendicitis with intraperitoneal abscesses and small bowel obstruction. OPERATIVE PROCEDURE: Laparoscopic lysis of adhesions, drainage of multiple intraperitoneal abscesses, laparoscopic appendectomy. ESTIMATED BLOOD LOSS: Less than 10 mL. IV FLUIDS: Crystalloid. SPECIMEN: 1. Intraperitoneal abscess fluid. 2. Appendix and fecalith. DRAINS: 7-mm Gianfranco Becerra. COMPLICATIONS: None. COUNTS: Instrument, needle, sponge counts correct. DESCRIPTION OF PROCEDURE: The patient was brought to the operating room, placed on the table supine. Sequential compression devices were placed on both lower extremities and general anesthesia was administered. Barreto catheter was placed. The patient was prepped and draped in the usual sterile fashion. A time -out was performed. Local anesthetic was infiltrated into the skin and soft tissues at the incision sites. Entry to the abdomen was through an infraumbilical vertical incision using an open technique. After accessing the peritoneal cavity, a 12-mm trocar was placed, carbon dioxide was insufflated to a pressure of 15 mmHg. There was murky fluid throughout the abdomen, extensive fibrinous exudate and multiple adhesions of small bowel to the anterior abdominal wall. A clear space was created in the left lower quadrant where the first 5-mm trocar was placed and then after clearing additional adhesions bluntly in the lower midline, a suprapubic 5-mm trocar was placed. Again, extensive fibrinous exudate was noted. Endoscopic suction was used to aspirate the fluid and attention was turned to the right lower quadrant. Small bowel was adherent to the cecum and as the small bowel was elevated out of this area with atraumatic graspers, abscess cavity was entered. Fluid was sampled, submitted for microbiology culture. Endoscopic suction was then used to aspirate and irrigate the area of the abscess. After drawing the small bowel up out of pelvis, the appendix was noted to be tethered in the pelvis, the tip of which was not immediately visible. The proximal portion attached to the cecum appeared to be normal. Using blunt dissection, the appendix was elevated from the pelvis and appeared to consistent with appendicitis. There was no gangrene noted. There was additional fat adherent to the appendix. As this was , a 1 to 2 cm size fecalith was encountered and this was retrieved and submitted with the specimen. As the patient had small bowel obstruction, the small bowel was run from the ileocecal valve proximally using atraumatic graspers. As each portion of the intestine was , it was inspected and I encountered 3 separate abscess collections, each of which was aspirated and irrigated. The small bowel was run proximally to the proximal jejunum. Although the ligament of Treitz was not identified, the area of the transition appeared to be have been traversed and there appeared to be no obstruction. Copious lavage of the abscess cavities was performed during these maneuvers. At this point, the attention was turned to the appendix. The appendix was elevated and window created in the appendix at its base and then the mesentry of the appendix was divided with 2 firings of the Endo JOSE ENRIQUE with faust cartridges. The appendix itself was divided from the cecum with the Endo JOSE ENRIQUE stapler with aquino cartridge. It was placed in an endoscopic retrieval bag and retrieved through the umbilical site. Copious lavage of the abdomen was completed with 6 L of warm saline irrigating in the pelvis as well as in the right upper and left upper quadrants until clear. A 7-mm Gianfranco Becerra drain was placed into the peritoneal cavity, withdrawn through suprapubic port and it was placed in the pelvis. It was sutured to the skin with 3-0 Prolene placed to suction bulb. Ports were removed under direct visualization and carbon dioxide was released. Umbilical wound was closed with 0 Vicryl in figure-of- eight fashion to approximate the fascia. Skin incisions were closed with interrupted 4-0 Monocryl. Steri-Strips and dressing were applied. The patient tolerated the procedure well. He was extubated and transferred to Recovery stable. [id number]/[facility] #: [id number] [facility] CENTERMariam
[2019-05-13] MEDS: NS 0.9% w/ 20 Meq KCL 1000 ML* 1,000 ML IV SCH ×3 (01:41→22:19)
[2019-05-13] MEDS: Insulin LISPRO* 1 UNITS UNIT SUBCUT SCH ×6 (02:01→22:12)
[2019-05-13] MEDS: ZOSYN 3.375 GM Q8H per EXTENDED INFUSION IVPB SCH ×6 (05:57→22:19)
[2019-05-13 06:48] LABS: ABS Lymphocytes 1.6 10^3/ul (1.0-4.8); ABS Monocytes 0.9 10^3/ul (0-0.8); ABS Neutrophils 11.4 10^3/ul (1.5-7.7); Eosinophil % 0.2 %; Hematocrit 38 % (42-52); Hemoglobin 12.6 g/dL (14.0-18.0); Lymphocyte % 11.3 %; Mean Corpuscular HGB Conc 33 g/dL (31-36); Mean Corpuscular Hemoglobin 30 pg (27-31); Mean Corpuscular Volume 90 fL (80-94); Mean Platelet Volume 8.4 fL (7.4-10.4); Platelet Count 193 10^3/uL (150-450); Red Blood Count 4.21 10^6 /uL (4.18-5.48); Red Cell Distribution Width 14 % (10-15)
[2019-05-13 07:10] LABS: Albumin 2.8 g/dL (3.2-5.2); Albumin/Globulin Ratio 1.2 (1-3); C Reactive Protein 289.15 mg/L (<8.01); Calcium 7.9 mg/dL (8.6-10.3); EGFR African American 208.9 (>60); EGFR Non-African American 172.6 (>60); Globulin 2.4 g/dL (2-4); Indirect Bilirubin 0.4 mg/dL (0.3-1.0); Potassium 3.9 mmol/L (3.5-5.0); Total Bilirubin 0.5 mg/dL (0.2-1.0); Total Protein 5.2 g/dL (6.4-8.9)
--- NOTE | 2019-05-13 07:20 | PN ---
Subjective - Subjective Reason for Note: Progress Note History: He is 1 day post-operative following appendectomy and drainage of macho- appendiceal abscesses. I reviewed the operative note by Dr. Froilan Santizo. He had small intestinal obstruction, 3 areas of abscess collection that were drained and irrigated, and he had the appendectomy. This morning he has no pain. He notes he has passed gas and can feel movements in his intestines. He is hungry. He denies any problems with chest pain, dyspnea, or cough. Active Problems: Active Problems Abscess, periappendiceal (Acute) K35.33 Acute appendicitis (Acute) K35.80 Sepsis (Acute) Diabetes (Chronic) E11.9 New dx, DKA treated and resolved. Start Lantus + Lispro fixed dose, monitor FS achs. Diabetic education + diabetic consult. Needs PCP. Tobacco abuse (Chronic) Z72.0 Pt advised to quit smoking and avoid second hand smoke. He declined my offer of a nicotine patch. Current Medications: Current Medications Dextrose (Dextrose 50% Vial 50 Ml*) 25 ml IV PUSH .FOR FS < 60 - SS PRN PRN Reason: FS < 60 Piperacillin Sod/Tazobactam (Sod 3.375 gm/ Sodium Chloride) 100 mls @ 25 mls/ hr IVPB 0600,1400,2200 [facility] Last Admin: 05/13/19 05:57 Dose: 25 mls/hr Potassium Chloride/Sodium Chloride (Ns 0.9% W/ 20 Meq Kcl 1000 Ml*) 1,000 mls @ 100 mls/hr IV .PER RATE [facility] Last Admin: 05/13/19 01:41 Dose: 100 mls/hr Insulin Glargine (Lantus(*)) 6 units SUBCUT Q24H [facility] Last Admin: 05/12/19 16:26 Dose: 6 units Insulin Human Lispro (Humalog*) 0 units SUBCUT Q4HR [facility]; Protocol Last Admin: 05/13/19 05:57 Dose: Not Given Morphine Sulfate (Morphine Inj (Syringe))*) 1 mg IV Q4H PRN PRN Reason: PAIN - MILD Morphine Sulfate (Morphine Inj (Syringe))*) 2 mg IV Q4H PRN PRN Reason: PAIN - MODERATE Last Admin: 05/12/19 08:10 Dose: 2 mg Morphine Sulfate (Morphine Inj (Syringe)*) 4 mg IV Q4H PRN PRN Reason: PAIN - SEVERE Ondansetron HCl (Zofran Inj*) 4 mg IV Q4H PRN PRN Reason: NAUSEA Pharmacy Consult (Zosyn Per Pharmacy*) 1 note FOLLOW UP .ZOSYN PER PHARMACY [facility] Home Medications: Home Medications Medication Instructions Recorded Confirmed Type Metformin HCl 500 mg PO BID 05/11/19 05/11/19 History Allergies: Allergies Allergy/AdvReac Type Severity Reaction Status Date / Time No Known Allergies Allergy Verified 04/22/17 10:54 Objective - Vital Signs Vital Signs: Vital Signs 05/12/19 05/12/19 05/12/19 07:31 08:00 08:01 Temperature 98.1 F Pulse Rate 91 98 Respiratory 18 18 Rate Blood Pressure 115/75 (mmHg) O2 Sat by Pulse 97 Oximetry 05/12/19 05/12/19 05/12/19 08:10 08:19 09:00 Temperature Pulse Rate 96 95 Respiratory 20 20 20 Rate Blood Pressure 125/85 124/83 (mmHg) O2 Sat by Pulse 95 95 Oximetry 05/12/19 05/12/19 05/12/19 10:00 10:01 11:00 Temperature 98.4 F Pulse Rate 95 97 96 Respiratory 25 17 22 Rate Blood Pressure 104/87 125/82 (mmHg) O2 Sat by Pulse 96 97 96 Oximetry 05/12/19 05/12/19 05/12/19 13:43 13:44 13:45 Temperature 98.6 F Pulse Rate 103 96 96 Respiratory Rate Blood Pressure 144/95 145/86 (mmHg) O2 Sat by Pulse 100 100 100 Oximetry 05/12/19 05/12/19 05/12/19 13:50 13:55 14:00 Temperature Pulse Rate 95 87 89 Respiratory Rate Blood Pressure 148/98 145/83 136/86 (mmHg) O2 Sat by Pulse 100 100 100 Oximetry 05/12/19 05/12/19 05/12/19 14:05 14:10 14:15 Temperature Pulse Rate 91 88 86 Respiratory 14 16 Rate Blood Pressure 125/85 130/82 131/78 (mmHg) O2 Sat by Pulse 94 94 93 Oximetry 05/12/19 05/12/19 05/12/19 14:30 14:45 15:00 Temperature Pulse Rate 83 84 85 Respiratory 14 17 17 Rate Blood Pressure 125/83 138/81 138/84 (mmHg) O2 Sat by Pulse 98 98 98 Oximetry 05/12/19 05/12/19 05/12/19 15:30 16:13 16:41 Temperature 98.3 F 97.9 F Pulse Rate 87 87 Respiratory 16 18 18 Rate Blood Pressure 131/81 121/71 (mmHg) O2 Sat by Pulse 99 99 Oximetry 05/12/19 05/12/19 05/12/19 16:48 17:21 19:41 Temperature 98.3 F 98.1 F 98.3 F Pulse Rate 87 98 99 Respiratory 16 16 18 Rate Blood Pressure 131/81 146/75 132/77 (mmHg) O2 Sat by Pulse 99 99 100 Oximetry 05/12/19 05/12/19 05/13/19 20:15 21:30 01:26 Temperature 97.9 F 97.5 F Pulse Rate 96 89 Respiratory 18 18 19 Rate Blood Pressure 121/70 118/73 (mmHg) O2 Sat by Pulse 99 99 Oximetry 05/13/19 06:12 Temperature 98.1 F Pulse Rate 90 Respiratory 19 Rate Blood Pressure 122/76 (mmHg) O2 Sat by Pulse 98 Oximetry - Intake and Output Intake and Output: Intake & Output 05/10/19 05/11/19 05/12/19 05/13/19 12:59 12:59 11:59 11:59 Intake Total 4007 Output Total 2620 Balance 1387 Weight Intake: IV Fluids 3800 LR 2800 NS (0.9%) NS (0.9%) 20 meq KCL 1000 IVPB 207 ABX - ZOSYN 207 NS (0.9%) Oral 0 Output: NG Tube Drainage Amount 700 MISHEL #1 370 Urine 500 Barreto 1050 ADLs: Meal Record Start: 05/12/19 03: 10 Freq: ,13,18 Status: Complete Protocol: Created 05/12/19 03:10 System (Rec: 05/12/19 03:10 System ICU-M23) ADLs: Meal Record Start: 05/12/19 16: 13 Freq: Status: Active Protocol: Created 05/12/19 16:13 [id number] (Rec: 05/12/19 16:13 [id number] SSU-M13) Intake and Output Start: 05/11/19 21: 05 Freq: Status: Cancelled Protocol: Created 05/11/19 21:05 System (Rec: 05/11/19 21:05 System [id number]) Intake and Output Start: 05/12/19 03: 10 Freq: Q8H Status: Cancelled Protocol: Created 05/12/19 03:10 System (Rec: 05/12/19 03:10 System ICU-M23) Document 05/12/19 01:00 EST [id number] (Rec: 05/12/19 04:45 [id number] ICU- M23) Document 05/12/19 05:00 [id number] (Rec: 05/12/19 05:14 [id number] ICU-C25) Document 05/12/19 06:00 [id number] (Rec: 05/12/19 06:09 [id number] ICU-C25) Document 05/12/19 07:00 [id number] (Rec: 05/12/19 07:11 [id number] ICU-M23) Document 05/12/19 10:00 [id number] (Rec: 05/12/19 10:40 [id number] ICU-C06) Document 05/12/19 16:12 [id number] (Rec: 05/12/19 16:12 [id number] SSU-M13) Document 05/12/19 16:15 [id number] (Rec: 05/12/19 16:47 [id number] SSU-C19) Intake and Output Start: 05/12/19 16: 13 Freq: DAILY@0600,1400,2200 Status: Cancelled Protocol: Created 05/12/19 16:13 [id number] (Rec: 05/12/19 16:13 [id number] SSU-M13) Document 05/12/19 18:52 [id number] (Rec: 05/12/19 18:52 [id number] SSU-M13) Document 05/12/19 19:41 [id number] (Rec: 05/12/19 19:42 [id number] SSU-M18) Document 05/12/19 22:07 [id number] (Rec: 05/12/19 22:08 [id number] SSU-M18) Intake and Output Start: 05/13/19 02: 25 Freq: Q4HR Status: Active Protocol: Created 05/13/19 02:26 [id number] (Rec: 05/13/19 02:26 BKG MAURICE-BG12) Document 05/13/19 06:05 [id number] (Rec: 05/13/19 06:06 [id number] SSU-M13) - Physical Exam General Physical Exam Comment: Nasogastric tube in situ. He is alert and oriented, in no acute distress and hemdynamically stable General: No Cyanosis, No Anemia, No Jaundice, No Clubbing Lungs and Chest: Yes: Chest Expansion Full, Chest Expansion Symetrica, Percussion Note Resonant, Vessicular Breath Sounds. No: Crackles, Wheezes Heart Rate and Rhythm: Regular Additional Cardiovascular: Yes: Normal Heart Sounds. No: Heart Murmur, Pedal Edema Abdominal Exam: Yes: Soft, Bowel Sounds Present. No: Distention Results - Results Lab Results: Laboratory Results - last 24 hr 05/12/19 05/12/19 05/12/19 08:09 11:49 14:58 WBC RBC Hgb Hct MCV MCH MCHC RDW Plt Count MPV Neut % (Auto) Lymph % (Auto) [place] % (Auto) Eos % (Auto) Baso % (Auto) Absolute Neuts (auto) Absolute Lymphs (auto) Absolute Monos (auto) Absolute Eos (auto) Absolute Basos (auto) Absolute Nucleated RBC Nucleated RBC % Sodium Potassium Chloride Carbon Dioxide Anion Gap BUN Creatinine Est GFR ( Amer) Est GFR (Non-Af Amer) BUN/Creatinine Ratio Glucose POC Glucose (mg/dL) 183 H 202 H 200 H Calcium Total Bilirubin Direct Bilirubin Indirect Bilirubin AST ALT Alkaline Phosphatase C-Reactive Protein Total Protein Albumin Globulin Albumin/Globulin Ratio 05/12/19 05/12/19 05/13/19 18:00 22:01 06:34 WBC 14.0 H RBC 4.21 Hgb 12.6 L Hct 38 L MCV 90 MCH 30 MCHC 33 RDW 14 Plt Count 193 MPV 8.4 Neut % (Auto) 81.6 Lymph % (Auto) 11.3 [place] % (Auto) 6.8 Eos % (Auto) 0.2 Baso % (Auto) 0.1 Absolute Neuts (auto) 11.4 H Absolute Lymphs (auto) 1.6 Absolute Monos (auto) 0.9 H Absolute Eos (auto) 0.0 Absolute Basos (auto) 0.0 Absolute Nucleated RBC 0.0 Nucleated RBC % 0.0 Sodium Potassium Chloride Carbon Dioxide Anion Gap BUN Creatinine Est GFR ( Amer) Est GFR (Non-Af Amer) BUN/Creatinine Ratio Glucose POC Glucose (mg/dL) 188 H 165 H Calcium Total Bilirubin Direct Bilirubin Indirect Bilirubin AST ALT Alkaline Phosphatase C-Reactive Protein Total Protein Albumin Globulin Albumin/Globulin Ratio 05/13/19 06:34 WBC RBC Hgb Hct MCV MCH MCHC RDW Plt Count MPV Neut % (Auto) Lymph % (Auto) [place] % (Auto) Eos % (Auto) Baso % (Auto) Absolute Neuts (auto) Absolute Lymphs (auto) Absolute Monos (auto) Absolute Eos (auto) Absolute Basos (auto) Absolute Nucleated RBC Nucleated RBC % Sodium 137 Potassium 3.9 Chloride 105 Carbon Dioxide 24 Anion Gap 8 BUN 12 Creatinine 0.50 L Est GFR ( Amer) 208.9 Est GFR (Non-Af Amer) 172.6 BUN/Creatinine Ratio 24.0 H Glucose 124 H POC Glucose (mg/dL) Calcium 7.9 L Total Bilirubin 0.50 Direct Bilirubin 0.10 Indirect Bilirubin 0.4 AST 11 L ALT 12 Alkaline Phosphatase 57 C-Reactive Protein 289.15 H Total Protein 5.2 L Albumin 2.8 L Globulin 2.4 Albumin/Globulin Ratio 1.2 Assessment - Problem List Assessment: Patient Problems Abscess, periappendiceal (Acute) Acute appendicitis (Acute) Sepsis (Acute) Diabetes (Chronic) Tobacco abuse (Chronic) Plan: T2D: His glucose is on target at 124 mg/dl. I will stop the lantus insulin. He can restart his metformin when he is eating and drinking Abscess, periappendiceal (Acute)Acute appendicitis (Acute)Sepsis (Acute) His sepsis is resolved. He has tolerated the appendectomy and drainage of the periappendiceal abcesses well. The intestinal obstruction appears improved - he is hungry and passing flatus. I will defer to the surgical team management of the NG tube and progress of his diet. In addition, they will decide on the length of parenteral, oral antibacterial management. I note his acute phase reactants are high - but his WBC and % neutrophils are coming down. Tobacco abuse (Chronic) ongoing discussion. I spoke to the patient about the above and he agrees with this management plan
--- NOTE | 2019-05-13 08:24 | PN ---
Progress Note - Progress Note Date of Service: 05/13/19 SOAP: Subjective: Pain controlled. Passing flatus. Wants to walk. Objective: Vital Signs Temp 97.7 F 05/13/19 07:32 Pulse 89 05/13/19 07:32 Resp 16 05/13/19 07:41 BP 119/69 05/13/19 07:32 Pulse Ox 97 05/13/19 07:32 Gen: NAD Abd: incisions with dressings c/d/i; ND; soft; tender. Intake & Output 05/12/19 05/13/19 05/13/19 18:59 06:59 18:59 Intake Total 3375 1207 Output Total 1130 1890 370 Balance 9553 -478 -730 Intake: IV Fluids 2800 1000 LR 2800 NS (0.9%) 20 meq KCL 1000 IVPB 575 207 ABX - ZOSYN 60 207 NS (0.9%) 515 Oral 0 0 Output: NG Tube Drainage Amount 700 350 MISHEL #1 230 140 20 Urine 900 Cummings 1050 Laboratory Results - last 24 hr 05/12/19 05/12/19 05/12/19 08:09 11:49 14:58 WBC RBC Hgb Hct MCV MCH MCHC RDW Plt Count MPV Neut % (Auto) Lymph % (Auto) [place] % (Auto) Eos % (Auto) Baso % (Auto) Absolute Neuts (auto) Absolute Lymphs (auto) Absolute Monos (auto) Absolute Eos (auto) Absolute Basos (auto) Absolute Nucleated RBC Nucleated RBC % Sodium Potassium Chloride Carbon Dioxide Anion Gap BUN Creatinine Est GFR ( Amer) Est GFR (Non-Af Amer) BUN/Creatinine Ratio Glucose POC Glucose (mg/dL) 183 H 202 H 200 H Calcium Total Bilirubin Direct Bilirubin Indirect Bilirubin AST ALT Alkaline Phosphatase C-Reactive Protein Total Protein Albumin Globulin Albumin/Globulin Ratio 05/12/19 05/12/19 05/13/19 18:00 22:01 06:34 WBC 14.0 H RBC 4.21 Hgb 12.6 L Hct 38 L MCV 90 MCH 30 MCHC 33 RDW 14 Plt Count 193 MPV 8.4 Neut % (Auto) 81.6 Lymph % (Auto) 11.3 [place] % (Auto) 6.8 Eos % (Auto) 0.2 Baso % (Auto) 0.1 Absolute Neuts (auto) 11.4 H Absolute Lymphs (auto) 1.6 Absolute Monos (auto) 0.9 H Absolute Eos (auto) 0.0 Absolute Basos (auto) 0.0 Absolute Nucleated RBC 0.0 Nucleated RBC % 0.0 Sodium Potassium Chloride Carbon Dioxide Anion Gap BUN Creatinine Est GFR ( Amer) Est GFR (Non-Af Amer) BUN/Creatinine Ratio Glucose POC Glucose (mg/dL) 188 H 165 H Calcium Total Bilirubin Direct Bilirubin Indirect Bilirubin AST ALT Alkaline Phosphatase C-Reactive Protein Total Protein Albumin Globulin Albumin/Globulin Ratio 05/13/19 06:34 WBC RBC Hgb Hct MCV MCH MCHC RDW Plt Count MPV Neut % (Auto) Lymph % (Auto) [place] % (Auto) Eos % (Auto) Baso % (Auto) Absolute Neuts (auto) Absolute Lymphs (auto) Absolute Monos (auto) Absolute Eos (auto) Absolute Basos (auto) Absolute Nucleated RBC Nucleated RBC % Sodium 137 Potassium 3.9 Chloride 105 Carbon Dioxide 24 Anion Gap 8 BUN 12 Creatinine 0.50 L Est GFR ( Amer) 208.9 Est GFR (Non-Af Amer) 172.6 BUN/Creatinine Ratio 24.0 H Glucose 124 H POC Glucose (mg/dL) Calcium 7.9 L Total Bilirubin 0.50 Direct Bilirubin 0.10 Indirect Bilirubin 0.4 AST 11 L ALT 12 Alkaline Phosphatase 57 C-Reactive Protein 289.15 H Total Protein 5.2 L Albumin 2.8 L Globulin 2.4 Albumin/Globulin Ratio 1.2 Assessment: pod#1 S/P lap appy/drainage multiple abscesses. Plan: d/c cummings; d/c NGT clears cont abx ambulate
[2019-05-13 09:14] LABS: Urine Appearance Clear; Urine Bacteria Absent (Absent); Urine Bilirubin Negative (Negative); Urine Blood 2+ (Negative); Urine Color Yellow; Urine Glucose Negative (Negative); Urine Ketones 2+ (Negative); Urine Nitrite Negative (Negative); Urine Protein Negative (Negative); Urine Red Blood Cell 3+(>10/hpf) (Absent); Urine Specific Gravity 1.027 (1.010-1.030); Urine Squamous Epithelial Cell Present (Absent); Urine Urobilinogen Positive (Negative); Urine White Blood Cell 2+(11-20/hpf) (Absent)
[2019-05-13] MEDS: Morphine INJ* 2 MG/ML 1 ML SYRINGE (TWO MG - NEW SYRINGE VERSION) IV PRN (23:39)
[2019-05-14] MEDS: Insulin LISPRO* 1 UNITS UNIT SUBCUT SCH ×6 (02:02→23:24)
[2019-05-14] MEDS: ZOSYN 3.375 GM Q8H per EXTENDED INFUSION IVPB SCH ×6 (06:05→23:26)
--- NOTE | 2019-05-14 08:50 | PN ---
Subjective - Subjective Reason for Note: Progress Note History: He is doing well from the medical point of view. He has no fever or sweats. Pain is 3/10. His glycemic control is good. Active Problems: Active Problems Abscess, periappendiceal (Acute) K35.33 Acute appendicitis (Acute) K35.80 Diabetes (Chronic) E11.9 New dx, DKA treated and resolved. Start Lantus + Lispro fixed dose, monitor FS achs. Diabetic education + diabetic consult. Needs PCP. Tobacco abuse (Chronic) Z72.0 Pt advised to quit smoking and avoid second hand smoke. He declined my offer of a nicotine patch. Current Medications: Current Medications Dextrose (Dextrose 50% Vial 50 Ml*) 25 ml IV PUSH .FOR FS < 60 - SS PRN PRN Reason: FS < 60 Piperacillin Sod/Tazobactam (Sod 3.375 gm/ Sodium Chloride) 100 mls @ 25 mls/ hr IVPB 0600,1400,2200 [facility] Last Admin: 05/14/19 06:05 Dose: 25 mls/hr Potassium Chloride/Sodium Chloride (Ns 0.9% W/ 20 Meq Kcl 1000 Ml*) 1,000 mls @ 100 mls/hr IV .PER RATE [facility] Last Admin: 05/13/19 22:19 Dose: 100 mls/hr Insulin Human Lispro (Humalog*) 0 units SUBCUT Q4HR [facility]; Protocol Last Admin: 05/14/19 06:05 Dose: Not Given Morphine Sulfate (Morphine Inj (Syringe))*) 1 mg IV Q4H PRN PRN Reason: PAIN - MILD Morphine Sulfate (Morphine Inj (Syringe))*) 2 mg IV Q4H PRN PRN Reason: PAIN - MODERATE Last Admin: 05/13/19 23:39 Dose: 2 mg Morphine Sulfate (Morphine Inj (Syringe)*) 4 mg IV Q4H PRN PRN Reason: PAIN - SEVERE Ondansetron HCl (Zofran Inj*) 4 mg IV Q4H PRN PRN Reason: NAUSEA Pharmacy Consult (Zosyn Per Pharmacy*) 1 note FOLLOW UP .ZOSYN PER PHARMACY [facility] - Review of Systems Constitutional Symptoms: No: Fatigue, Fever, Night Sweats Pulmonary: Negative: Cough, Sputum, Hemoptysis, Respiratory Distress, Shortness of Breath Cardiology: Negative: Chest Pain, Palpitations, Swelling of Ankles Gastroenterology: Positive: Change in Bowel Habits - x 2 loose stool Negative: Nausea, Vomiting, Anorexia Genital - Urinary: Negative: Dysuria - voiding well after Barreto removed Home Medications: Home Medications Medication Instructions Recorded Confirmed Type Metformin HCl 500 mg PO BID 05/11/19 05/11/19 History Allergies: Allergies Allergy/AdvReac Type Severity Reaction Status Date / Time No Known Allergies Allergy Verified 04/22/17 10:54 Objective - Vital Signs Vital Signs: Vital Signs 05/13/19 05/13/19 05/13/19 12:02 15:52 19:16 Temperature 98.1 F 98.3 F 98.7 F Pulse Rate 90 86 81 Respiratory 16 16 16 Rate Blood Pressure 137/75 124/78 135/74 (mmHg) O2 Sat by Pulse 98 99 99 Oximetry 05/13/19 05/13/19 05/13/19 22:00 23:04 23:39 Temperature 99.1 F Pulse Rate 83 Respiratory 12 18 16 Rate Blood Pressure 131/72 (mmHg) O2 Sat by Pulse 99 Oximetry 05/14/19 05/14/19 05/14/19 01:15 03:34 07:53 Temperature 98.5 F 97.9 F Pulse Rate 77 77 Respiratory 14 18 16 Rate Blood Pressure 125/64 123/68 (mmHg) O2 Sat by Pulse 98 98 Oximetry - Intake and Output Intake and Output: Intake & Output 05/11/19 05/12/19 05/13/19 05/14/19 12:59 11:59 11:59 11:59 Intake Total 5127 2580 Output Total 3340 1313 Balance 1787 1267 Weight Intake: IV Fluids 4810 980 LR 2800 NS (0.9%) NS (0.9%) 20 meq KCL 2010 980 IVPB 317 110 ABX - ZOSYN 317 110 NS (0.9%) Oral 0 1490 Output: NG Tube Drainage Amount 1200 MISHEL #1 390 13 Urine 550 1300 Barreto 1200 Other: Date of Last Bowel 05/14/19 Movement # Bowel Movements 1 Estimated Stool Amount Medium ADLs: Meal Record Start: 05/12/19 03: 10 Freq: 09,13,18 Status: Complete Protocol: Created 05/12/19 03:10 System (Rec: 05/12/19 03:10 System ICU-M23) ADLs: Meal Record Start: 05/12/19 16: 13 Freq: Status: Active Protocol: Created 05/12/19 16:13 [id number] (Rec: 05/12/19 16:13 [id number] SSU-M13) Document 05/13/19 22:37 [id number] (Rec: 05/13/19 22:39 [id number] SSU-M18) Intake and Output Start: 05/11/19 21: 05 Freq: Status: Cancelled Protocol: Created 05/11/19 21:05 System (Rec: 05/11/19 21:05 System ED-C24) Intake and Output Start: 05/12/19 03: 10 Freq: Q8H Status: Cancelled Protocol: Created 05/12/19 03:10 System (Rec: 05/12/19 03:10 System ICU-M23) Document 05/12/19 01:00 EST [id number] (Rec: 05/12/19 04:45 [id number] ICU- M23) Document 05/12/19 05:00 [id number] (Rec: 05/12/19 05:14 [id number] ICU-C25) Document 05/12/19 06:00 [id number] (Rec: 05/12/19 06:09 [id number] ICU-C25) Document 05/12/19 07:00 [id number] (Rec: 05/12/19 07:11 [id number] ICU-M23) Document 05/12/19 10:00 [id number] (Rec: 05/12/19 10:40 [id number] ICU-C06) Document 05/12/19 16:12 [id number] (Rec: 05/12/19 16:12 [id number] SSU-M13) Document 05/12/19 16:15 [id number] (Rec: 05/12/19 16:47 [id number] SSU-C19) Intake and Output Start: 05/12/19 16: 13 Freq: DAILY@0600,1400,2200 Status: Cancelled Protocol: Created 05/12/19 16:13 [id number] (Rec: 05/12/19 16:13 [id number] SSU-M13) Document 05/12/19 18:52 [id number] (Rec: 05/12/19 18:52 [id number] SSU-M13) Document 05/12/19 19:41 [id number] (Rec: 05/12/19 19:42 [id number] SSU-M18) Document 05/12/19 22:07 [id number] (Rec: 05/12/19 22:08 [id number] SSU-M18) Intake and Output Start: 05/13/19 02: 25 Freq: Q4HR Status: Active Protocol: Created 05/13/19 02:26 [id number] (Rec: 05/13/19 02:26 BK MAURICE-BG12) Document 05/13/19 06:05 [id number] (Rec: 05/13/19 06:06 [id number] SSU-M13) Document 05/13/19 07:30 [id number] (Rec: 05/13/19 07:33 [id number] SSU-M13) Document 05/13/19 08:57 [id number] (Rec: 05/13/19 08:58 [id number] SSU-M13) Document 05/13/19 09:05 [id number] (Rec: 05/13/19 09:05 [id number] SSU-M13) Document 05/13/19 14:20 [id number] (Rec: 05/13/19 14:21 [id number] SSU-M13) Document 05/13/19 17:57 [id number] (Rec: 05/13/19 17:57 [id number] SSU-M13) Document 05/13/19 19:27 [id number] (Rec: 05/13/19 19:28 [id number] SSU-M18) Document 05/13/19 22:30 [id number] (Rec: 05/13/19 22:31 [id number] SSU-M07) Document 05/13/19 22:37 [id number] (Rec: 05/13/19 22:39 [id number] SSU-M18) Document 05/14/19 00:00 [id number] (Rec: 05/14/19 00:16 [id number] SSU-C11) Document 05/14/19 03:38 [id number] (Rec: 05/14/19 03:39 [id number] SSU-M15) Document 05/14/19 06:03 [id number] (Rec: 05/14/19 06:04 [id number] SSU-M07) Document 05/14/19 07:24 [id number] (Rec: 05/14/19 07:24 [id number] TELE-M14) Document 05/14/19 07:58 [id number] (Rec: 05/14/19 07:58 [id number] TELE-4) - Physical Exam General Physical Exam Comment: Warm and well perfused General: No Cyanosis, No Anemia, No Jaundice, No Clubbing Lungs and Chest: Yes: Chest Expansion Full, Chest Expansion Symetrica, Percussion Note Resonant, Vessicular Breath Sounds. No: Crackles, Wheezes, Respiratory Distress Heart Rate and Rhythm: Regular Additional Cardiovascular: Yes: Normal Heart Sounds. No: Heart Murmur, Pedal Edema Abdominal Exam: Yes: Soft, Abdominal Tenderness, Bowel Sounds Present. No: Distention Results - Results Lab Results: Laboratory Results - last 24 hr 05/13/19 05/13/19 05/13/19 01:55 05:53 09:00 POC Glucose (mg/dL) 132 H 127 H Urine Color Yellow Urine Appearance Clear Urine pH 7.0 Ur Specific [place] 1.027 Urine Protein Negative Urine Ketones 2+ A Urine Blood 2+ A Urine Nitrate Negative Urine Bilirubin Negative Urine Urobilinogen Positive A Ur Leukocyte Esterase Trace A Urine WBC (Auto) 2+(11-20/hpf) A Urine RBC (Auto) 3+(>10/hpf) A Ur Squamous Epith Cells Present A Urine Bacteria Absent Urine Glucose Negative 05/13/19 05/13/19 05/13/19 10:12 14:12 17:55 POC Glucose (mg/dL) 129 H 130 H 143 H Urine Color Urine Appearance Urine pH Ur Specific [place] Urine Protein Urine Ketones Urine Blood Urine Nitrate Urine Bilirubin Urine Urobilinogen Ur Leukocyte Esterase Urine WBC (Auto) Urine RBC (Auto) Ur Squamous Epith Cells Urine Bacteria Urine Glucose 05/13/19 05/14/19 05/14/19 22:11 01:56 06:02 POC Glucose (mg/dL) 143 H 152 H 125 H Urine Color Urine Appearance Urine pH Ur Specific [place] Urine Protein Urine Ketones Urine Blood Urine Nitrate Urine Bilirubin Urine Urobilinogen Ur Leukocyte Esterase Urine WBC (Auto) Urine RBC (Auto) Ur Squamous Epith Cells Urine Bacteria Urine Glucose Assessment - Problem List Assessment: Patient Problems Abscess, periappendiceal (Acute) Acute appendicitis (Acute) Diabetes (Chronic) Tobacco abuse (Chronic) Plan: Diabetes (Chronic) controlled Abscess, periappendiceal (Acute) Acute appendicitis (Acute) Day 2 post-op. I have transferred him to the surgical service for management Tobacco abuse (Chronic) counseled I discussed the above with the patient. He is doing well.
[2019-05-14] MEDS: NS 0.9% w/ 20 Meq KCL 1000 ML* 1,000 ML IV SCH (08:51)
[2019-05-14] MEDS ORDERED: Ibuprofen TAB* 600 MG PO PRN (09:29)
[2019-05-14] MEDS ORDERED: oxyCODONE/Acetamin 5/325 MG* TAB PO PRN (09:29)
--- NOTE | 2019-05-14 15:18 | PN ---
Progress Note - Progress Note Date of Service: 05/14/19 SOAP: Subjective: Pain controlled. No N/V and passing flatus and small BM. Tolerating liquids. Objective: Vital Signs Temp 98 F 05/14/19 11:34 Pulse 83 05/14/19 11:34 Resp 16 05/14/19 11:34 BP 126/65 05/14/19 11:34 Pulse Ox 99 05/14/19 11:34 Gen:NAD Abd: incis c/d/i; no erythema; soft; min tender; MISHEL serous. Intake & Output 05/13/19 05/14/19 05/14/19 18:59 06:59 18:59 Intake Total 1120 2580 420 Output Total 980 653 800 Balance 140 1927 -380 Intake: IV Fluids 1010 980 NS (0.9%) 20 meq KCL 1010 980 IVPB 110 110 ABX - ZOSYN 110 110 Oral 1490 420 Output: NG Tube Drainage Amount 500 MISHEL #1 30 3 Urine 300 650 800 Barreto 150 Other: Date of Last Bowel t 05/14/19 Movement # Bowel Movements 1 Estimated Stool Amount Medium Large Medium Laboratory Results - last 24 hr 05/13/19 05/13/19 05/14/19 17:55 22:11 01:56 POC Glucose (mg/dL) 143 H 143 H 152 H 05/14/19 05/14/19 05/14/19 06:02 10:06 13:25 POC Glucose (mg/dL) 125 H 147 H 167 H Assessment: POD#2 s/p lap appy/drainage abscesses. Doing well. Plan: Adv diet. d/c MISHEL Home soon on po abx.
[2019-05-15] MEDS: ZOSYN 3.375 GM Q8H per EXTENDED INFUSION IVPB SCH ×4 (06:25→13:54)
[2019-05-15] MEDS: Insulin LISPRO* 1 UNITS UNIT SUBCUT SCH ×2 (09:21→13:49)
[2019-05-15 11:28] VITALS: BP 153/71
--- NOTE | 2019-05-15 12:15 | PN ---
Progress Note - Progress Note Date of Service: 05/15/19 SOAP: Subjective: Comfortable in bed NAD. + flatus + BM [] Objective: Vital Signs Temp 98.4 F 05/15/19 11:27 Pulse 78 05/15/19 11:27 Resp 16 05/15/19 11:27 BP 153/71 05/15/19 11:27 Pulse Ox 99 05/15/19 11:27 Intake & Output 05/14/19 05/15/19 05/15/19 18:59 06:59 18:59 Intake Total 420 730 Output Total 800 1000 Balance -380 -270 Intake: Oral 420 730 Output: Urine 800 1000 Other: Estimated Void Medium Date of Last Bowel 05/14/19 05/15/19 Movement # Bowel Movements 1 Estimated Stool Amount Medium Medium # Voids 1 PEX: Gen: NAD Chest: CTA B/L CVS: RRR ABD: Incisions C/D/I, hypoactive BS's minimal tenderness Ext: calves soft B/L [] Assessment: POD 3 S/P Lap Appy for Perf Appy with Abscess. Improved, + BM [] Plan: D/C home on PO Augmentin BID x 10 days. Prescription sent to [facility]. Above D/W DR Santizo []
--- NOTE | 2019-05-16 15:44 | DS ---
Discharge Summary Surgeon: Dr Santizo Admit Date:05/11/19 OR Date: 06/01/19 Discharge Date: 05/15/19 D/C diagnosis:S/P Perforated Appendix with abscess Reason For Admission:Perforated Appendix with abscess Assessment of Condition at Discharge:Stable Date of D/C PEX: GEN:Comfortable in NAD Chest:CTA B/L CVS: RRR ABD: Soft, ND, incisions C/D/I EXT: calves soft non tender Procedures Performed:Laparoscopic Appendectomy Treatment Rendered: Pt taken to the OR on 05/12 for lap apendectomy, tolerated well, tx'd to [facility] for post op care. Uneventful, onpost op day 2, 05/14, MISHEL drain was removed. patient had BM, on 05/15, POD 3, pt was comfortable, exam as above. plan for D/C with PO augmentin x 10 days. Discharge instructions were given to the patient regarding Diet, Medications, Activity, and post operative Follow up. All Questions were answered. Discharged Home in Stable Condition on DATE- 05/15/19
== END 2019-05-15 14:38 | disposition home health service (06) | DRG 710 ==
LOC: ED 20:59 → ICU 05-12 02:12 → SSU 05-12 15:45
PROVIDERS: ADMIT Internal Medicine; ATTEND Surgery
PROC: 0DTJ4ZZ Resection of Appendix, Percutaneous Endoscopic Approach (ICD-10-PCS; principal; 2019-05-12 11:00)
DX: A41.9 Sepsis, unspecified organism (principal); K35.33 Acute appendicitis with perforation, localized peritonitis, and gangrene, with abscess; E87.1 Hypo-osmolality and hyponatremia; K56.609 Unspecified intestinal obstruction, unspecified as to partial versus complete obstruction; K40.90 Unilateral inguinal hernia, without obstruction or gangrene, not specified as recurrent; E11.9 Type 2 diabetes mellitus without complications; Z72.89 Other problems related to lifestyle; Z87.891 Personal history of nicotine dependence
CPT/HCPCS: 36415; 74177; 80048; 80053; 80076; 81003; 81015; 82040; 82150; 82803; 83605; 83690; 83735; 84484; 85025; 85610; 85730; 86140; 87040; 87070; 87073; 87076; 87077; 87086; 87186; 87205; 87640; 87641; 88304; 93005; 96374; 96375; 99285; C1776; J0330; J1100; J1170; J1240; J1885; J2250; J2270; J2405; J2543; J2704; J3010; J3490; Q9967